=== PATIENT | male | born 1975 | race Caucasian/White ===

== ENCOUNTER 2016-05-30 14:32 | Emergency (ER) | payer SELFPAY ==
[2016-05-30 14:44] VITALS: BP 170/84
[2016-05-30] MEDS ORDERED: HYDROmorphone 0.5 MG/0.5 ML Syringe IVPUSH ONE (15:51)
[2016-05-30] MEDS ORDERED: Ondansetron 4 MG/2 ML SDV IVPUSH ONE (15:51)
--- NOTE | 2016-05-30 15:57 | EDM.PDOC ---
ED HPI GI/ABDOMINAL - General Chief Complaint: Abdominal Pain Stated Complaint: POSS. HERNIA Time Seen by Provider: 05/30/16 15:39 Source of Information: Reports: Patient History Limitations: Reports: No limitations - History of Present Illness INITIAL COMMENTS - FREE TEXT/NARRATIVE: Patient is a 40-year-old male who presents to the ED complaining of left lower quadrant abdominal pain. States while lifting a heavy object with a coworker he developed sudden onset of left inguinal discomfort that radiated into his testicles. Patient states he noticed a bulge to his left groin and was able to push it back in. States the pain is constant increased with ambulation and palpation. States he has a hard time getting comfortable. Currently the pain is rated a 10 out of 10. Denies any testicular pain but notes a pressure sensation. Has had no issues with bowel movements. Last bowel movement was earlier today described as normal formed and soft. No blood present. He's had no issues or urination. He is mildly nauseated with generalized body aches with also tactile fever and chills. Timing/Duration: Reports: Constant, Waxing/waning Location: LLQ Quality: Reports: ache Severity: severe Improves with: Reports: other (rest) Worsens with: Reports: palpation, other (moving) Context: Reports: lifting Associated Symptoms: Reports: fever/chills, loss of appetite, malaise, nausea/ vomiting. 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: Other (see below) (none stated) - Related Data Allergies/ADRs: Allergies Allergy/AdvReac Type Severity Reaction Status Date / Time No Known Allergies Allergy Verified 05/30/16 14:44 Home Meds: Home Meds Hydrocodone/Acetaminophen [[place] 5-325] 1 tab PO TID PRN #10 tablet 05/30/16 [Rx ] Past Medical History - Past Health History Medical/Surgical History: Denies Medical/Surgical History Gastrointestinal History: Reports: Hepatitis, Pancreatitis Psychiatric History: Reports: Addiction Social & Family History - Family History Family Medical History: Noncontributory - Tobacco Use Smoking Status *Q: Current Every Day Smoker Years of Tobacco use: 20 Packs/Tins Daily: 1 - Caffeine Use Caffeine Use: Reports: Coffee, Energy drinks - Alcohol Use Days Per Week of Alcohol Use: 7 Number of Drinks Per Day: 4 Total Drinks Per Week: 28 - Recreational Drug Use Recreational Drug Use: No Drug Use in Last 12 Months: No - Living Situation & Occupation Living situation: Reports: single Occupation: employed ED ROS GENERAL - Review of Systems Review Of Systems: See Below Constitutional: Reports: fever, chills, malaise, decreased appetite Respiratory: Reports: No Symptoms Cardiovascular: Reports: No symptoms GI/Abdominal: Reports: Abdominal pain, Decreased appetite, Nausea. Denies: Black stool, Bloody stool, Constipation, Diarrhea, Vomiting : Reports: no symptoms Musculoskeletal: Reports: no symptoms ED EXAM, GI/ABD - Physical Exam Exam: See Below Exam Limited By: No limitations General Appearance: alert, WD/WN, mild distress Ears: hearing grossly normal Nose: normal inspection Throat/Mouth: Normal voice, No airway compromise Neck: normal inspection Respiratory/Chest: no respiratory distress, lungs clear, normal breath sounds Cardiovascular: normal peripheral pulses, regular rate, rhythm GI/Abdominal: normal bowel sounds, soft, no organomegaly, no distention, tenderness (left inguinal region), guarding (Male) Exam: No hernia, Normal inspection, Circumcised, Cremasteric reflex. No: Scrotum tenderness (L), Scrotum tenderness (R), Testicular tenderness (L), Testicular tenderness (R) Rectal (Males) Exam: Deferred Back Exam: normal inspection. No: CVA tenderness (L), CVA tenderness (R) Neurological: alert, oriented, CN II-XII intact, normal cognition Psychiatric: normal affect, normal mood Skin Exam: Warm, Dry, Intact, Normal color Course - Vital Signs Last Recorded V/S: Last Vital Signs Temp 99.3 F 05/30/16 14:39 Pulse 99 05/30/16 14:39 Resp 18 05/30/16 14:39 BP 170/84 H 05/30/16 14:39 Pulse Ox 99 05/30/16 14:39 - Orders/Labs/Meds Orders: Active Orders 24 hr Category Date Time Status Peripheral IV Care [RC] . DIRECTED Care 05/30/16 15:51 Active Peripheral IV Insertion Adult [OM.PC] Stat Oth 05/30/16 15:51 Ordered Labs: Laboratory Tests 05/30/16 05/30/16 05/30/16 Range/Units 16:10 16:10 16:39 WBC 8.42 (4.23-9.07) K/mm3 RBC 5.81 (4.63-6.08) M/mm3 Hgb 18.1 H (13.7-17.5) gm/L Hct 51.8 H (40.1-51.0) % MCV 89.2 (79.0-92.2) fl MCH 31.2 (25.7-32.2) pg MCHC 34.9 (32.2-35.5) g/dl RDW Std Deviation 43.0 (35.1-43.9) fL Plt Count 260 (163-337) K/mm3 MPV 8.7 L (9.4-12.3) fl Neut % (Auto) 45.9 (34.0-67.9) % Lymph % (Auto) 40.5 (21.8-53.1) % Meade % (Auto) 7.2 (5.3-12.2) % Eos % (Auto) 4.9 (0.8-7.0) Baso % (Auto) 1.3 H (0.1-1.2) % Neut # (Auto) 3.86 (1.78-5.38) K/mm3 Lymph # (Auto) 3.41 (1.32-3.57) K/mm3 [place] # (Auto) 0.61 (0.30-0.82) K/mm3 Eos # (Auto) 0.41 (0.04-0.54) K/mm3 Baso # (Auto) 0.11 H (0.01-0.08) K/mm3 Sodium 139 (136-145) mEq/L Potassium 4.0 (3.5-5.1) mEq/L Chloride 103 (98-107) mEq/L Carbon Dioxide 26 (21-32) mEq/L Anion Gap 14.0 (5-15) BUN 16 (7-18) mg/dL Creatinine 0.8 (0.7-1.3) mg/dL Est Cr Clr Drug Dosing 125.47 mL/min Estimated GFR (MDRD) > 60 (>60) mL/min BUN/Creatinine Ratio 20.0 H (14-18) Glucose 85 (74-106) mg/dL Calcium 9.1 (8.5-10.1) mg/dL Total Bilirubin 0.4 (0.2-1.0) mg/dL AST 54 H (15-37) U/L ALT 122 H (16-63) U/L Alkaline Phosphatase 136 H (46-116) U/L C-Reactive Protein < 0.2 (<1.0) mg/dL Total Protein 7.2 (6.4-8.2) g/dl Albumin 4.0 (3.4-5.0) g/dl Globulin 3.2 gm/dL Albumin/Globulin Ratio 1.3 (1-2) Lipase 384 (73-393) U/L Urine Color Yellow (Yellow) Urine Appearance Clear (Clear) Urine pH 6.5 (5.0-8.0) Ur Specific [place] 1.025 (1.005-1.030) Urine Protein Negative (Negative) Urine Glucose (UA) Negative (Negative) Urine Ketones Negative (Negative) Urine Occult Blood Negative (Negative) Urine Nitrite Negative (Negative) Urine Bilirubin Negative (Negative) Urine Urobilinogen 0.2 (0.2-1.0) Ur Leukocyte Esterase Negative (Negative) Urine RBC 0-5 (0-5) /hpf Urine WBC 0-5 (0-5) /hpf Ur Epithelial Cells Not Reportable Ur Squamous Epith Cells 0-5 (0-5) /hpf Urine Bacteria Few (FEW) /hpf Urine Mucus Not seen (FEW) /hpf Meds: Medications Discontinued Medications Generic Name Dose Route Start Last Admin Trade Name Jimbo PRN Reason Stop Dose Admin Diatrizoate Meglum/Diatrizoate Sod 90 ml 05/30/16 17:02 05/30/16 17:38 Gastrografin 37% PO 05/30/16 17:03 90 ml ONETIME ONE Administration Hydromorphone HCl 0.5 mg 05/30/16 15:51 Dilaudid IVPUSH 05/30/16 15:52 ONETIME ONE Sodium Chloride 1,000 mls @ 125 mls/hr 05/30/16 16:00 05/30/16 16:19 Normal Saline IV 125 mls/hr ASDIRECTED RAMAN Administration Iopamidol 125 ml 05/30/16 17:02 05/30/16 17:38 Isovue-300 (61%) IVPUSH 05/30/16 17:03 125 ml ONETIME ONE Administration Ketorolac Tromethamine 30 mg 05/30/16 16:15 05/30/16 16:31 Toradol IVPUSH 05/30/16 16:16 30 mg ONETIME ONE Administration Ondansetron HCl 4 mg 05/30/16 15:51 05/30/16 16:19 Zofran IVPUSH 05/30/16 15:52 4 mg ONETIME ONE Administration Sodium Chloride 10 ml 05/30/16 15:51 05/30/16 17:38 Saline Flush FLUSH 10 ml ASDIRECTED PRN Administration Keep Vein Open - Re-Assessments/Exams Free Text/Narrative Re-Assessment/Exam: Ordered peripheral IV with normal saline 125 mL per hour, Dilaudid 0.5 mg IVP, and Zofran 4 mg IVP. Initial labs and studies include CBC, chem 14, CRP, lipase , UA with micro, and CT of the abdomen and pelvis with IV and oral contrast. 05/30/16 15:52 Patient refused Dilaudid since he has to drive. Toradol 30mg IV ordered. Labs revealed CBC was essentially normal. Chem 14 was also essentially normal with only mildly elevated LFTs. Lipase WNL. UA was negative. 05/30/16 18:38 CT of the abdomen revealed no abnormality is identified CT study of the abdomen and pelvis. Shared results of labs and also CT study with patient. He is ready to be discharged home. Discharge instructions as documented. Departure - Departure Time of Disposition: 19:17 Disposition: Home, Self-Care 01 Condition: good Clinical Impression: Abdominal pain Qualifiers: Abdominal location: left lower quadrant Qualified Code(s): R10.32 - Left lower quadrant pain Prescriptions: Hydrocodone/Acetaminophen [[place] 5-325] 1 tab PO TID PRN #10 tablet PRN Reason: Pain Instructions: Abdominal Pain, Adult, [id number], Pain Medicine Instructions, [id number] Referrals: PCP,None [Primary Care Provider] - Segun Arevalo [Physician] - Parish Silveira MD [Physician] - Forms: ED Department Discharge Additional Instructions: As discussed CT of the abdomen and pelvis did not reveal any acute abnormalities. Labs were essentially normal except for elevated liver enzymes. Will have you followup with Dr. Luevano for further workup. In addition with concerns for left inguinal hernia and left lower abdominal pain please followup with Dr. Silveira in the next week. Refrain from any heavy lifting. For pain take ibuprofen 600mg every 6 hours. For severe pain take norco 1 tab every [address] while taking the narcotic. Return to the E.D. for any new or worsening symptoms. - My Orders Last 24 Hours: My Active Orders 05/30/16 15:51 Peripheral IV Care [RC] . DIRECTED Peripheral IV Insertion Adult [OM.PC] Stat - Assessment/Plan Last 24 Hours: My Active Orders 05/30/16 15:51 Peripheral IV Care [RC] . DIRECTED Peripheral IV Insertion Adult [OM.PC] Stat
[2016-05-30] MEDS ORDERED: Sodium Chloride 0.9% 1,000 ML IV SCH (16:00)
[2016-05-30] MEDS ORDERED: Ketorolac 30 MG/ML SDV IVPUSH ONE (16:15)
[2016-05-30] MEDS: Sodium Chloride 0.9% 10 ML Syringe FLUSH PRN ×2 (16:40→17:38)
[2016-05-30] MEDS ORDERED: Diatrizoate Meglumine/Diatrizoate Sodium 37% 120 ML Bottle PO ONE (17:02)
[2016-05-30] MEDS ORDERED: Iopamidol 612 MG/ML 150 ML Bottle IVPUSH ONE (17:02)
--- NOTE | 2016-05-30 17:58 | CT ---
CT abdomen and pelvis Technique: Multiple axial sections were obtained from above the dome of the diaphragm inferiorly through the pubic symphysis. Intravenous and oral contrast was utilized. Delayed images were also obtained through the bladder. Findings: Liver shows no focal parenchymal abnormality. Adrenal glands show no nodule. Pancreas is normal. Spleen appears normal. Kidneys show symmetric contrast enhancement without hydronephrosis or mass. Gallbladder shows no calcified gallstones. Aorta shows no aneurysmal dilatation. No retroperitoneal adenopathy or mesenteric abnormalities are seen. Appendix is seen which appears normal in size. No pelvic mass or adenopathy is seen. No free fluid or inflammatory change is seen. No bowel dilatation is seen. Delayed images shows contrast within the distal ureters and within the bladder. Bone window settings were reviewed which appears within normal limits for the patient's age. Impression: 1. No abnormality is identified on CT study of the abdomen and pelvis. Diagnostic code #1
== END 2016-05-30 19:45 | disposition home or self-care (01) ==
LOC: JD.ED 14:32
DX: R10.32 Left lower quadrant pain (principal); F17.200 Nicotine dependence, unspecified, uncomplicated
CPT/HCPCS: 36415; 74177; 80053; 81001; 83690; 85025; 86140; 96361; 96374; 96375; 99284; J1885; J2405; J7040; J7050; Q9963; Q9967

== ENCOUNTER 2016-09-03 22:18 | Emergency (ER) | payer SELFPAY ==
[2016-09-03] MEDS ORDERED: Naloxone 2 MG/2 ML Syringe IVPUSH STA (23:37)
[2016-09-03] MEDS ORDERED: Sodium Chloride 0.9% 1,000 ML IV SCH (23:45)
[2016-09-03] MEDS ORDERED: Naloxone 2 MG/2 ML Syringe IVPUSH ONE (23:56)
[2016-09-04] MEDS ORDERED: Naloxone 2 MG/2 ML Syringe IVPUSH ONE ×2 (00:32→01:20)
[2016-09-04 00:37] LABS: ACETAMINOPHEN 0 ug/mL (10-30)
--- NOTE | 2016-09-04 00:49 | EDM.PDOCBH ---
ED HPI GENERAL MEDICAL PROBLEM - General Chief Complaint: Drug or Alcohol Abuse Stated Complaint: DETOX Time Seen by Provider: 09/03/16 22:57 Source of Information: Reports: Patient, Family (Brother, [id number]), RN Notes Reviewed History Limitations: Reports: Altered Mental Status - History of Present Illness INITIAL COMMENTS - FREE TEXT/NARRATIVE: The patient is brought to the ED by his brother and [id number]. The brother states that the patient is a heroin addict, and that he has not been reliably showing up to work for the past 1-2 months, and that he is running out of money. He states that family and friends of the patient, including the patient' s landlord and boss, held an intervention tonight, encouraging the patient to seek help, and after some time, the patient eventually said okay. The patient states that he injects 1-2 points (0.1 - 0.2 g) of heroin daily. His last dose was around 22:00 tonight - he injected 1.5 points (0.15 g). He states that he started using heroin when he was around 18 years old, sporadically initially, but daily for the past 9 months. He has never been to inpatient or outpatient drug rehabilitation, and he has never been hospitalized related to his heroin use. He states that he has never overdosed on heroin, and has never been given Narcan, in fact, he did not know what Narcan was. He has never investigated medication treatment for heroin abstinence, such as methadone or Suboxone. The patient states that he tried to stop heroin "cold turkey" about 3 weeks ago. He states that he abstained from heroin for about 3-4 days before developing symptoms of skin crawling, restlessness, and feeling hot and cold, after which he relapsed. The patient states that he will occasionally inject methamphetamine, but the last time he did that was about 2 months ago. The patient states, and the patient's brother corroborates, that the patient oftentimes drinks alcohol in excess when he is not shooting heroin, but that he uses it more conservatively when he is using heroin. The patient states that when he is using heroin, he typically has 2 drinks per night. He denies having any alcohol tonight. The patient was in inpatient rehabilitation at [facility] for about 2 weeks last year, for alcoholism. He states that he went to outpatient counseling for about 2 weeks, and has not gone back since. He was hospitalized for alcohol-related pancreatitis in 2009, but he has never suffered DTs, and has never required endotracheal intubation. The patient does not have a PCP. - Related Data Allergies Allergy/AdvReac Type Severity Reaction Status Date / Time No Known Allergies Allergy Verified 05/30/16 14:44 Past Medical History Gastrointestinal History: Reports: Pancreatitis Psychiatric History: Reports: Addiction - Past Surgical History HEENT Surgical History: Reports: Oral Surgery (Counce teeth extraction) Social & Family History - Family History Family Medical History: Noncontributory - Tobacco Use Smoking Status *Q: Current Every Day Smoker Years of Tobacco use: 26 Packs/Tins Daily: 2 - Caffeine Use Caffeine Use: Reports: None - Alcohol Use Alcohol Use History: Yes Days Per Week of Alcohol Use: 7 Number of Drinks Per Day: 4 Total Drinks Per Week: 28 Alcohol Use Frequency: Binges - Recreational Drug Use Recreational Drug Use: Yes Drug Use in Last 12 Months: Yes Recreational Drug Type: Reports: Heroin (daily), Methamphetamine (occasionally) - Living Situation & Occupation Living situation: Reports: , with Significant Other (Girlfriend) Occupation: Employed ([employer]) ED ROS GENERAL - Review of Systems Review Of Systems: See Below Constitutional: Reports: No Symptoms HEENT: Reports: No Symptoms Respiratory: Reports: No Symptoms Cardiovascular: Reports: No Symptoms Endocrine: Reports: No Symptoms GI/Abdominal: Reports: No Symptoms : Reports: No Symptoms Musculoskeletal: Reports: No Symptoms Skin: Reports: No Symptoms Neurological: Reports: No Symptoms Psychiatric: Reports: No Symptoms Hematologic/Lymphatic: Reports: No Symptoms Immunologic: Reports: No Symptoms ED EXAM, BEHAVIORAL HEALTH - Physical Exam Exam: See Below Exam Limited By: Intoxication General Appearance: WD/WN, No Apparent Distress, Lethargic (easily aroused with tactile stimulation) Eye Exam: Bilateral Eye: Normal Inspection Ears: Normal External Exam, Hearing Grossly Normal Nose: Normal Inspection, No Blood Throat/Mouth: Normal Inspection, Normal Lips, Normal Voice, No Airway Compromise Head: Atraumatic, Normocephalic Neck: Normal Inspection, Full Range of Motion Respiratory/Chest: No Respiratory Distress, Lungs Clear, Normal Breath Sounds, No Accessory Muscle Use Cardiovascular: Normal Peripheral Pulses, Regular Rate, Rhythm, No Gallop, No JVD, No Murmur, No Rub GI/Abdominal: Normal Bowel Sounds, Soft, Non-Tender, No Organomegaly, No Distention, No Abnormal Bruit, No Mass (Male) Exam: Deferred Rectal (Males) Exam: Deferred Back Exam: Normal Inspection, Full Range of Motion, NT Extremities: Normal Inspection, Normal Range of Motion, No Pedal Edema, Normal Capillary Refill, Other (Track jordan noted on the proximal left forearm and antecubetal fossa) Neurological: No Motor/Sensory Deficits, Inattentive Psychiatric: Normal Affect Skin Exam: Warm, Dry, Intact, Normal color, No rash EKG INTERPRETATION EKG Date: 09/03/16 Time: 23:40 Rhythm: NSR Rate (Beats/Min): 85 [place]: Normal P-Wave: Present QRS: Normal ST-T: Normal QT: Normal Comparison: NA - No Prior EKG COURSE, BEHAVIORAL HEALTH COMP - Course Vital Signs: Last Vital Signs Temp 36.6 C 09/03/16 22:32 Pulse 98 09/03/16 22:32 Resp 18 09/03/16 22:32 BP 121/91 H 09/03/16 22:32 Pulse Ox 88 L 09/03/16 22:32 Orders, Labs, Meds: Active Orders 24 hr Category Date Time Status EKG Documentation Completion [RC] STAT Care 09/03/16 23:34 Active Sodium Chloride 0.9% [Normal Saline] 1,000 ml Med 09/03/16 23:45 Active IV ASDIRECTED Medication Orders Sodium Chloride (Normal Saline) 1,000 mls @ 150 mls/hr IV ASDIRECTED RAMAN Last Admin: 09/03/16 23:49 Dose: 150 mls/hr Laboratory Tests 09/03/16 09/03/16 09/03/16 Range/Units 23:34 23:34 23:34 WBC 8.97 (4.23-9.07) K/mm3 RBC 4.73 (4.63-6.08) M/mm3 Hgb 15.0 (13.7-17.5) gm/L Hct 44.2 (40.1-51.0) % MCV 93.4 H (79.0-92.2) fl MCH 31.7 (25.7-32.2) pg MCHC 33.9 (32.2-35.5) g/dl RDW Std Deviation 42.2 (35.1-43.9) fL Plt Count 231 (163-337) K/mm3 MPV 8.9 L (9.4-12.3) fl Neutrophils % (Manual) 50 (40-60) % Band Neutrophils % 0 (0-10) % Lymphocytes % (Manual) 34 (20-40) % Atypical Lymphs % 0 % Monocytes % (Manual) 9 (2-10) % Eosinophils % (Manual) 7 (0.8-7.0) % Basophils % (Manual) 0 L (0.2-1.2) Platelet Estimate Adequate Plt Morphology Comment Normal RBC Morph Comment Normal Sodium 142 (136-145) mEq/L Potassium 3.5 (3.5-5.1) mEq/L Chloride 104 (98-107) mEq/L Carbon Dioxide 31 (21-32) mEq/L Anion Gap 10.5 (5-15) BUN 10 (7-18) mg/dL Creatinine 1.0 (0.7-1.3) mg/dL Est Cr Clr Drug Dosing 100.38 mL/min Estimated GFR (MDRD) > 60 (>60) mL/min BUN/Creatinine Ratio 10.0 L (14-18) Glucose 77 (74-106) mg/dL Calcium 8.5 (8.5-10.1) mg/dL Total Bilirubin 0.4 (0.2-1.0) mg/dL AST 32 (15-37) U/L ALT 49 (16-63) U/L Alkaline Phosphatase 76 (46-116) U/L Total Protein 7.0 (6.4-8.2) g/dl Albumin 3.6 (3.4-5.0) g/dl Globulin 3.4 gm/dL Albumin/Globulin Ratio 1.1 (1-2) Salicylates 4.2 (2.8-20) mg/dL Urine Opiates Screen (NEGATIVE) Ur Buprenorphine Scrn (NEGATIVE) Ur Oxycodone Screen (NEGATIVE) Urine Methadone Screen (NEGATIVE) Ur Propoxyphene Screen (NEGATIVE) Acetaminophen 0 L (10-30) ug/mL Ur Barbiturates Screen (NEGATIVE) Ur Tricyclics Screen (NEGATIVE) Ur Phencyclidine Scrn (NEGATIVE) Ur Amphetamine Screen (NEGATIVE) U Methamphetamines Scrn (NEGATIVE) U Benzodiazepines Scrn (NEGATIVE) U Cocaine Metab Screen (NEGATIVE) U Marijuana (THC) Screen (NEGATIVE) Ethyl Alcohol 0.00 (0.00) gm% 09/04/16 Range/Units 01:39 WBC (4.23-9.07) K/mm3 RBC (4.63-6.08) M/mm3 Hgb (13.7-17.5) gm/L Hct (40.1-51.0) % MCV (79.0-92.2) fl MCH (25.7-32.2) pg MCHC (32.2-35.5) g/dl RDW Std Deviation (35.1-43.9) fL Plt Count (163-337) K/mm3 MPV (9.4-12.3) fl Neutrophils % (Manual) (40-60) % Band Neutrophils % (0-10) % Lymphocytes % (Manual) (20-40) % Atypical Lymphs % % Monocytes % (Manual) (2-10) % Eosinophils % (Manual) (0.8-7.0) % Basophils % (Manual) (0.2-1.2) Platelet Estimate Plt Morphology Comment RBC Morph Comment Sodium (136-145) mEq/L Potassium (3.5-5.1) mEq/L Chloride (98-107) mEq/L Carbon Dioxide (21-32) mEq/L Anion Gap (5-15) BUN (7-18) mg/dL Creatinine (0.7-1.3) mg/dL Est Cr Clr Drug Dosing mL/min Estimated GFR (MDRD) (>60) mL/min BUN/Creatinine Ratio (14-18) Glucose (74-106) mg/dL Calcium (8.5-10.1) mg/dL Total Bilirubin (0.2-1.0) mg/dL AST (15-37) U/L ALT (16-63) U/L Alkaline Phosphatase (46-116) U/L Total Protein (6.4-8.2) g/dl Albumin (3.4-5.0) g/dl Globulin gm/dL Albumin/Globulin Ratio (1-2) Salicylates (2.8-20) mg/dL Urine Opiates Screen Presumptive positive H (NEGATIVE) Ur Buprenorphine Scrn Negative (NEGATIVE) Ur Oxycodone Screen Negative (NEGATIVE) Urine Methadone Screen Negative (NEGATIVE) Ur Propoxyphene Screen Negative (NEGATIVE) Acetaminophen (10-30) ug/mL Ur Barbiturates Screen Negative (NEGATIVE) Ur Tricyclics Screen Negative (NEGATIVE) Ur Phencyclidine Scrn Negative (NEGATIVE) Ur Amphetamine Screen Negative (NEGATIVE) U Methamphetamines Scrn Presumptive positive H (NEGATIVE) U Benzodiazepines Scrn Presumptive positive H (NEGATIVE) U Cocaine Metab Screen Negative (NEGATIVE) U Marijuana (THC) Screen Negative (NEGATIVE) Ethyl Alcohol (0.00) gm% Medications Generic Name Dose Route Start Last Admin Trade Name Freq PRN Reason Stop Dose Admin Sodium Chloride 1,000 mls @ 150 mls/hr 09/03/16 23:45 09/03/16 23:49 Normal Saline IV 150 mls/hr ASDIRECTED RAMAN Administration Discontinued Medications Generic Name Dose Route Start Last Admin Trade Name Freq PRN Reason Stop Dose Admin Naloxone HCl 0.1 mg 09/03/16 23:37 09/03/16 23:50 Narcan IVPUSH 09/03/16 23:38 0.1 mg ONETIME STA Administration Naloxone HCl 0.1 mg 09/03/16 23:56 09/04/16 00:01 Narcan IVPUSH 09/03/16 23:57 0.1 mg ONETIME ONE Administration Naloxone HCl 0.1 mg 09/04/16 00:32 09/04/16 00:36 Narcan IVPUSH 09/04/16 00:33 0.1 mg ONETIME ONE Administration Naloxone HCl 0.1 mg 09/04/16 01:20 09/04/16 01:22 Narcan IVPUSH 09/04/16 01:21 0.1 mg ONETIME ONE Administration Medical Clearance: 09/04/16 01:42 The patient was brought into the ED by the patient's brother and [id number], with the hope that he would receive medical detox here, then be admitted to an inpatient rehabilitation facility. Unfortunately, such "interventions" do not work unless the patient is motivated to rid himself or herself of the drug or alcohol, and even that sentiment is meaningless unless patient is sober when they make that decision. In this case, the patient is significantly under the influence of heroin, to the point that he falls asleep and hypoventilates, leading to hypoxemia. He is easily aroused with minimal physical stimuli, however, it is not practical to have someone sitting next to him, arousing him every minute or so when his oxygen saturation declines. I have therefore elected to treat with Narcan, however, it is not my intention to put him into full-blown withdrawal. I have therefore been giving him very small doses, 0.1 mg IV, whenever his oxygen saturation drops. He has responded very well, either by waking up, or remaining asleep, but in either case, with an immediate rise in his oxygen saturation. Within the next few hours, the heroin he took will wear off, and Narcan will no longer be necessary. Once he has sobered up, I will refer him to [facility]. 09/04/16 05:45 The patient has been sleeping quietly. He has not required any Narcan since 01: 20, over 4 hours ago. He is currently easy to wake and lucid. I will have him call his brother to pick him up. I will give him the number for [facility], and encourage him to follow-up today. Departure - Departure Time of Disposition: 05:47 Disposition: Home, Self-Care 01 Condition: Good Clinical Impression: Heroin addiction, Polysubstance abuse - Discharge Information Additional Instructions: You were brought to the emergency room by your family over concern about your heroin use. You were given 4 doses of Narcan to prevent you from under-breathing. We STRONGLY recommend that you follow-up at [facility] today, located at: [facility] [address] [place] If any other problems, please do not hesitate to return to the ER. - My Orders Last 24 Hours: My Active Orders 09/03/16 23:34 EKG Documentation Completion [RC] STAT 09/03/16 23:45 Sodium Chloride 0.9% [Normal Saline] 1,000 ml IV ASDIRECTED - Assessment/Plan Last 24 Hours: My Active Orders 09/03/16 23:34 EKG Documentation Completion [RC] STAT 09/03/16 23:45 Sodium Chloride 0.9% [Normal Saline] 1,000 ml IV ASDIRECTED
[2016-09-04 06:09] VITALS: BP 101/72
== END 2016-09-04 06:07 | disposition home or self-care (01) ==
LOC: JD.ED 22:18
DX: F11.20 Opioid dependence, uncomplicated (principal); F19.10 Other psychoactive substance abuse, uncomplicated; F17.210 Nicotine dependence, cigarettes, uncomplicated; Z98.890 Other specified postprocedural states
CPT/HCPCS: 36415; 80053; 80306; 85025; 93005; 96361; 96374; 96376; 99284; G0480; J2310; J7040

== ENCOUNTER 2016-09-07 11:26 | Emergency (ER) | payer SELFPAY ==
[2016-09-07] MEDS ORDERED: Sodium Chloride 0.9% 10 ML Syringe FLUSH PRN (12:24)
[2016-09-07] MEDS ORDERED: Sodium Chloride 0.9% 2,000 ML IV ONE (12:24)
[2016-09-07] MEDS ORDERED: LORazepam 2 MG/ML MDV IVPUSH ONE (12:24)
[2016-09-07] MEDS ORDERED: Ondansetron 4 MG/2 ML SDV IVPUSH ONE (12:25)
[2016-09-07] MEDS ORDERED: ceFAZolin 1 GM in Premix Bag 1 BAG IV ONE (12:27)
--- NOTE | 2016-09-07 12:30 | EDM.PDOCBH ---
ED HPI GENERAL MEDICAL PROBLEM - General Chief Complaint: Behavioral/Psych Stated Complaint: DRUG AND ALCHOL WITHDRAWAL Time Seen by Provider: 09/07/16 12:14 Source of Information: Reports: Patient History Limitations: Reports: No Limitations - History of Present Illness INITIAL COMMENTS - FREE TEXT/NARRATIVE: Patient is a 40-year-old male presents to the ED going through heroin withdrawal. Patient states he last used heroin approximately 72 hours ago and has since then been experiencing hot and cold chills, nausea/vomiting, and tremors. Patient states he's gone through similar episodes 3 additional times with no hospitalization required. States he injects heroin twice a day for the past year. He has used marijuana and methamphetamines in the past. Denies recent alcohol use. He has undergone alcohol treatment inpatient in the past. Denies any treatment for recreational drug use. He recently lost his job but may retain it if he undergoes 30 day treatment. Patient has been excepted to the [facility] Crisis Bed but has to be medically cleared. Patient denies CP, SOB, N/V , fever/chills, or any additional complaints. Headache Pain Score (Numeric/FACES): 5 - Related Data Allergies Allergy/AdvReac Type Severity Reaction Status Date / Time No Known Allergies Allergy Verified 09/08/16 11:29 Home Meds: Home Meds . [No Known Home Meds] 09/07/16 [History] Past Medical History - Past Health History Medical/Surgical History: Denies Medical/Surgical History Gastrointestinal History: Reports: Pancreatitis Psychiatric History: Reports: Addiction, Anxiety - Past Surgical History HEENT Surgical History: Reports: Oral Surgery Social & Family History - Family History Family Medical History: Noncontributory - Tobacco Use Smoking Status *Q: Current Every Day Smoker Years of Tobacco use: 30 Packs/Tins Daily: 1 Used Tobacco, but Quit: No Second Hand Smoke Exposure: No - Caffeine Use Caffeine Use: Reports: Energy Drinks - Alcohol Use Days Per Week of Alcohol Use: 7 Number of Drinks Per Day: 4 Total Drinks Per Week: 28 - Recreational Drug Use Recreational Drug Use: Yes Drug Use in Last 12 Months: Yes Recreational Drug Type: Reports: Heroin Other Recreational Drug Type: last used 72 hours ago Recreational Drug Use Frequency: Daily - Living Situation & Occupation Living situation: Reports: , with Significant Other (Girlfriend) 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 ED EXAM, BEHAVIORAL HEALTH - Physical Exam Exam: See Below Exam Limited By: No Limitations General Appearance: Alert, WD/WN, Anxious Eye Exam: Bilateral Eye: EOMI, PERRL Ears: Hearing Grossly Normal Nose: Normal Inspection Throat/Mouth: Normal Voice, No Airway Compromise Head: Atraumatic, Normocephalic Neck: Normal Inspection, Supple, Non-Tender, Full Range of Motion. No: Lymphadenopathy (L), Lymphadenopathy (R) Respiratory/Chest: No Respiratory Distress, Lungs Clear, Normal Breath Sounds, No Accessory Muscle Use, Chest Non-Tender Cardiovascular: Normal Peripheral Pulses, Regular Rate, Rhythm GI/Abdominal: Normal Bowel Sounds, Soft, Non-Tender, No Organomegaly, No Distention Back Exam: Normal Inspection Extremities: Other (Multiple track jordan to the right/left upper extremity. Mild redness noted to the right/left antecubital space. Increased warmth noted. No purulent drainage present. No history of MRSA per patient.) Neurological: Alert, Normal Mood/Affect, CN II-XII Intact, Normal Cognition, Normal Gait, No Motor/Sensory Deficits, Oriented x 3 Psychiatric: Alert, Normal Affect, Normal Cognition, Normal Mood, Oriented. No : Homicidal Thoughts, Suicidal Plan, Suicidal Thoughts COURSE, BEHAVIORAL HEALTH COMP - Course Vital Signs: Last Vital Signs Temp 97.9 F 09/07/16 11:38 Pulse 62 09/07/16 14:27 Resp 14 09/07/16 14:27 BP 116/69 09/07/16 14:27 Pulse Ox 94 L 09/07/16 14:27 Orders, Labs, Meds: Laboratory Tests 09/07/16 09/07/16 09/07/16 Range/Units 12:52 12:52 12:52 WBC 8.14 (4.23-9.07) K/mm3 RBC 4.58 L (4.63-6.08) M/mm3 Hgb 14.6 (13.7-17.5) gm/L Hct 42.3 (40.1-51.0) % MCV 92.4 H (79.0-92.2) fl MCH 31.9 (25.7-32.2) pg MCHC 34.5 (32.2-35.5) g/dl RDW Std Deviation 40.9 (35.1-43.9) fL Plt Count 275 (163-337) K/mm3 MPV 8.6 L (9.4-12.3) fl Neut % (Auto) 46.6 (34.0-67.9) % Lymph % (Auto) 35.6 (21.8-53.1) % [place] % (Auto) 11.4 (5.3-12.2) % Eos % (Auto) 5.3 (0.8-7.0) Baso % (Auto) 0.9 (0.1-1.2) % Neut # (Auto) 3.79 (1.78-5.38) K/mm3 Lymph # (Auto) 2.90 (1.32-3.57) K/mm3 [place] # (Auto) 0.93 H (0.30-0.82) K/mm3 Eos # (Auto) 0.43 (0.04-0.54) K/mm3 Baso # (Auto) 0.07 (0.01-0.08) K/mm3 PT 10.5 (8.0-13.0) SECONDS INR 0.97 Sodium 143 (136-145) mEq/L Potassium 3.8 (3.5-5.1) mEq/L Chloride 106 (98-107) mEq/L Carbon Dioxide 30 (21-32) mEq/L Anion Gap 10.8 (5-15) BUN 12 (7-18) mg/dL Creatinine 0.8 (0.7-1.3) mg/dL Est Cr Clr Drug Dosing 121.52 mL/min Estimated GFR (MDRD) > 60 (>60) mL/min BUN/Creatinine Ratio 15.0 (14-18) Glucose 77 (74-106) mg/dL Calcium 8.8 (8.5-10.1) mg/dL Total Bilirubin 0.6 (0.2-1.0) mg/dL AST 32 (15-37) U/L ALT 49 (16-63) U/L Alkaline Phosphatase 82 (46-116) U/L C-Reactive Protein 2.7 H* (<1.0) mg/dL Total Protein 7.0 (6.4-8.2) g/dl Albumin 3.5 (3.4-5.0) g/dl Globulin 3.5 gm/dL Albumin/Globulin Ratio 1.0 (1-2) TSH 3rd Generation 0.812 (0.358-3.74) uIU/mL Urine Color (Yellow) Urine Appearance (Clear) Urine pH (5.0-8.0) Ur Specific [place] (1.005-1.030) Urine Protein (Negative) Urine Glucose (UA) (Negative) Urine Ketones (Negative) Urine Occult Blood (Negative) Urine Nitrite (Negative) Urine Bilirubin (Negative) Urine Urobilinogen (0.2-1.0) Ur Leukocyte Esterase (Negative) Urine RBC (0-5) /hpf Urine WBC (0-5) /hpf Ur Epithelial Cells (0-5) /hpf Urine Bacteria (FEW) /hpf Urine Mucus (FEW) /hpf Urine Opiates Screen (NEGATIVE) Ur Buprenorphine Scrn (NEGATIVE) Ur Oxycodone Screen (NEGATIVE) Urine Methadone Screen (NEGATIVE) Ur Propoxyphene Screen (NEGATIVE) Ur Barbiturates Screen (NEGATIVE) Ur Tricyclics Screen (NEGATIVE) Ur Phencyclidine Scrn (NEGATIVE) Ur Amphetamine Screen (NEGATIVE) U Methamphetamines Scrn (NEGATIVE) U Benzodiazepines Scrn (NEGATIVE) U Cocaine Metab Screen (NEGATIVE) U Marijuana (THC) Screen (NEGATIVE) Ethyl Alcohol 0.00 (0.00) gm% 09/07/16 09/07/16 Range/Units 14:54 14:54 WBC (4.23-9.07) K/mm3 RBC (4.63-6.08) M/mm3 Hgb (13.7-17.5) gm/L Hct (40.1-51.0) % MCV (79.0-92.2) fl MCH (25.7-32.2) pg MCHC (32.2-35.5) g/dl RDW Std Deviation (35.1-43.9) fL Plt Count (163-337) K/mm3 MPV (9.4-12.3) fl Neut % (Auto) (34.0-67.9) % Lymph % (Auto) (21.8-53.1) % [place] % (Auto) (5.3-12.2) % Eos % (Auto) (0.8-7.0) Baso % (Auto) (0.1-1.2) % Neut # (Auto) (1.78-5.38) K/mm3 Lymph # (Auto) (1.32-3.57) K/mm3 [place] # (Auto) (0.30-0.82) K/mm3 Eos # (Auto) (0.04-0.54) K/mm3 Baso # (Auto) (0.01-0.08) K/mm3 PT (8.0-13.0) SECONDS INR Sodium (136-145) mEq/L Potassium (3.5-5.1) mEq/L Chloride (98-107) mEq/L Carbon Dioxide (21-32) mEq/L Anion Gap (5-15) BUN (7-18) mg/dL Creatinine (0.7-1.3) mg/dL Est Cr Clr Drug Dosing mL/min Estimated GFR (MDRD) (>60) mL/min BUN/Creatinine Ratio (14-18) Glucose (74-106) mg/dL Calcium (8.5-10.1) mg/dL Total Bilirubin (0.2-1.0) mg/dL AST (15-37) U/L ALT (16-63) U/L Alkaline Phosphatase (46-116) U/L C-Reactive Protein (<1.0) mg/dL Total Protein (6.4-8.2) g/dl Albumin (3.4-5.0) g/dl Globulin gm/dL Albumin/Globulin Ratio (1-2) TSH 3rd Generation (0.358-3.74) uIU/mL Urine Color Yellow (Yellow) Urine Appearance Clear (Clear) Urine pH 5.5 (5.0-8.0) Ur Specific [place] > or = 1.030 (1.005-1.030) Urine Protein Trace H (Negative) Urine Glucose (UA) Negative (Negative) Urine Ketones Trace H (Negative) Urine Occult Blood Negative (Negative) Urine Nitrite Negative (Negative) Urine Bilirubin 2+ H (Negative) Urine Urobilinogen 0.2 (0.2-1.0) Ur Leukocyte Esterase Negative (Negative) Urine RBC 0-5 (0-5) /hpf Urine WBC 0-5 (0-5) /hpf Ur Epithelial Cells 0-5 (0-5) /hpf Urine Bacteria Few (FEW) /hpf Urine Mucus Moderate H (FEW) /hpf Urine Opiates Screen Presumptive positive H (NEGATIVE) Ur Buprenorphine Scrn Negative (NEGATIVE) Ur Oxycodone Screen Negative (NEGATIVE) Urine Methadone Screen Negative (NEGATIVE) Ur Propoxyphene Screen Negative (NEGATIVE) Ur Barbiturates Screen Negative (NEGATIVE) Ur Tricyclics Screen Negative (NEGATIVE) Ur Phencyclidine Scrn Negative (NEGATIVE) Ur Amphetamine Screen Negative (NEGATIVE) U Methamphetamines Scrn Negative (NEGATIVE) U Benzodiazepines Scrn Presumptive positive H (NEGATIVE) U Cocaine Metab Screen Negative (NEGATIVE) U Marijuana (THC) Screen Negative (NEGATIVE) Ethyl Alcohol (0.00) gm% Medications Discontinued Medications Generic Name Dose Route Start Last Admin Trade Name Freq PRN Reason Stop Dose Admin Sodium Chloride 2,000 mls @ 999 mls/hr 09/07/16 12:24 09/07/16 13:13 Normal Saline IV 09/07/16 14:24 999 mls/hr ONETIME ONE Administration Cefazolin Sodium/Dextrose 1 gm 50 mls @ 100 mls/hr 09/07/16 12:27 09/07/16 13 :11 / Premix IV 09/07/16 12:56 100 mls/hr ONETIME ONE Administration Lorazepam 2 mg 09/07/16 12:24 09/07/16 13:05 Ativan IVPUSH 09/07/16 12:25 2 mg ONETIME ONE Administration Ondansetron HCl 4 mg 09/07/16 12:25 09/07/16 13:02 Zofran IVPUSH 09/07/16 12:26 4 mg ONETIME ONE Administration Sodium Chloride 10 ml 09/07/16 12:24 09/07/16 13:03 Saline Flush FLUSH 10 ml ASDIRECTED PRN Administration Keep Vein Open Re-Assessment/Re-Exam: Will order a peripheral IV with normal saline, Zofran 4 mg IVP, and Ativan 1 mg IVP. Initial labs and studies include CBC, chem 14, CRP, blood cultures 2, urine drug tox, serum EtOH, PTT/INR, TSH, UA with micro, and EKG. Patient has cellulitis to the antecubital spaces bilaterally. Ordered Ancef 1 g IV. Labs reviewed. Awaiting UA results. Patient more comfortable after receiving ativan. UA results were not back. Patient became agitated and very anxious and wanted to leave. Patient eloped from the ED. Departure - Departure Time of Disposition: 15:45 Disposition: Eloped 07 Condition: Good Clinical Impression: Heroin addiction, Heroin withdrawal Cellulitis Qualifiers: Site of cellulitis: extremity Site of cellulitis of extremity: upper extremity Laterality: unspecified laterality Qualified Code(s): L03.119 - Cellulitis of unspecified part of limb - Discharge Information Referrals: PCP,None [Primary Care Provider] - Forms: ED Department Discharge
--- NOTE | 2016-09-07 13:34 | CR ---
Chest: Portable view of the chest was obtained. Comparison: No previous chest x-ray. Heart has a slight left ventricular configuration and is minimally enlarged. Tortuous thoracic aorta is seen. Lungs are clear with no acute infiltrates. Slight degenerative spurring is noted within the mid thoracic spine. Impression: 1. Incidental findings as noted above. Nothing acute is seen. Diagnostic code #2
[2016-09-07 14:27] VITALS: BP 116/69
== END 2016-09-07 15:35 | disposition left against medical advice (07) ==
LOC: JD.ED 11:26
DX: F11.23 Opioid dependence with withdrawal (principal); L03.114 Cellulitis of left upper limb; L03.113 Cellulitis of right upper limb; F17.210 Nicotine dependence, cigarettes, uncomplicated
CPT/HCPCS: 36415; 71010; 80053; 80306; 81001; 84443; 85025; 85610; 86140; 87040; 93005; 96361; 96365; 96375; 99285; G0480; J0690; J2060; J2405; J7040; J7050; 99284

== ENCOUNTER 2016-09-08 11:26 | Inpatient (IN) | payer SELFPAY ==
[2016-09-08] MEDS ORDERED: Sodium Chloride 0.9% 1,000 ML IV STA (11:54)
[2016-09-08] MEDS ORDERED: cloNIDine 0.1 MG Tab PO ONE (11:57)
[2016-09-08] MEDS: Sodium Chloride 0.9% 10 ML Syringe FLUSH PRN (12:16)
--- NOTE | 2016-09-08 12:54 | EDM.PDOC ---
ED HPI GENERAL MEDICAL PROBLEM - General Chief Complaint: Fever Stated Complaint: [facility] Time Seen by Provider: 09/08/16 11:41 Source of Information: Reports: Patient, EMS History Limitations: Reports: Intoxication - History of Present Illness INITIAL COMMENTS - FREE TEXT/NARRATIVE: The patient presents by ambulance for heroin withdrawal. He is a known user and he was seen yesterday for withdrawals. He was without heroin for 72 hours as of yesterday and he had nausea, vomiting and agitation. He was seen here and labs were done which looked good. He was going to go to the [facility] but he left before they could get him there. He used heroin again last night. He injected the heroin. He has some redness and edema to the right antecubital area. He has no chest pain or shortness of breath. He has fever, chills but no cough. He did get ancef yesterday. He denies using meth or other street drugs. He denies drinking alcohol. He has nausea and vomiting and he was given zofran by EMS. Onset: Gradual Duration: Day(s): (Yesterday) Severity: Moderate Improves with: Reports: None Worsens with: Reports: None Associated Symptoms: Reports: Fever/Chills, Nausea/Vomiting. Denies: Cough, cough w sputum, Shortness of Breath Treatments BASIN OPERATOR: Reports: IV/IO, Other (see below) Other Treatments BASIN OPERATOR: zofran 4 mg IV - Related Data Allergies Allergy/AdvReac Type Severity Reaction Status Date / Time No Known Allergies Allergy Verified 09/08/16 11:29 Home Meds: Home Meds . [No Known Home Meds] 09/07/16 [History] Past Medical History - Past Health History Medical/Surgical History: Denies Medical/Surgical History Gastrointestinal History: Reports: Pancreatitis Psychiatric History: Reports: Addiction, Anxiety - Past Surgical History HEENT Surgical History: Reports: Oral Surgery Social & Family History - Family History Family Medical History: Noncontributory - Tobacco Use Smoking Status *Q: Current Every Day Smoker Years of Tobacco use: 30 Packs/Tins Daily: 1 Used Tobacco, but Quit: No Second Hand Smoke Exposure: No - Caffeine Use Caffeine Use: Reports: Energy Drinks - Alcohol Use Days Per Week of Alcohol Use: 7 Number of Drinks Per Day: 4 Total Drinks Per Week: 28 - Recreational Drug Use Recreational Drug Use: Yes Drug Use in Last 12 Months: Yes Recreational Drug Type: Reports: Heroin Other Recreational Drug Type: last used 72 hours ago Recreational Drug Use Frequency: Daily - Living Situation & Occupation Living situation: Reports: , with Significant Other (Girlfriend) Occupation: Employed ([employer]) ED ROS GENERAL - Review of Systems Review Of Systems: See Below Constitutional: Reports: Fever, Chills HEENT: Reports: No Symptoms Respiratory: Reports: No Symptoms Cardiovascular: Reports: No Symptoms Endocrine: Reports: No Symptoms GI/Abdominal: Reports: Nausea, Vomiting. Denies: Abdominal Pain : Reports: No Symptoms Musculoskeletal: Reports: Other (Right AC redness and pain) ED EXAM, SEPSIS - Physical Exam Exam: See Below Exam Limited By: Other (He is somnolent but he will awake when talked to and answer some questions) General Appearance: Other (Somnolent) Eye Exam: Bilateral Eye: PERRL Ears: Normal External Exam Nose: Normal Inspection Throat/Mouth: Normal Inspection Head: Atraumatic, Normocephalic Neck: Normal Inspection Respiratory/Chest: No Respiratory Distress, Lungs Clear, Normal Breath Sounds Cardiovascular: Regular Rate, Rhythm, No Edema, No Murmur GI/Abdominal Exam: Soft, Non-Tender, No Organomegaly, No Mass Back: Normal Inspection Extremities: Other (Right AC has erythema and edema. Good sensation pulses distally.) Neurological: Oriented, No Motor/Sensory Deficits, Other (somnolent but he will wake up and answer questions) Course - Vital Signs Last Recorded V/S: Last Vital Signs Temp 101.0 F H 09/08/16 11:29 Pulse 133 H 09/08/16 11:29 Resp 24 H 09/08/16 11:29 BP 148/81 H 09/08/16 12:14 Pulse Ox 99 09/08/16 11:29 - Orders/Labs/Meds Orders: Active Orders 24 hr Category Date Time Status Oxygen Therapy [RC] ASDIRECTED Care 09/08/16 16:30 Active Peripheral IV Care [RC] . DIRECTED Care 09/08/16 11:57 Active Levofloxacin/Dextrose 5%-Water [Levaquin in D5W 750 MG/ Med 09/08/16 16:26 Active 150 ML] 750 mg Premix Bag 1 bag IV ONETIME Sodium Chloride 0.9% [Normal Saline] 100 ml Med 09/08/16 15:30 Active IV ASDIRECTED Sodium Chloride 0.9% [Saline Flush] Med 09/08/16 11:54 Active 10 ml FLUSH ASDIRECTED PRN Peripheral IV Insertion Adult [OM.PC] Stat Oth 09/08/16 11:54 Ordered Medication Orders Sodium Chloride (Normal Saline) 100 mls @ 60 mls/hr IV ASDIRECTED RAMAN Last Admin: 09/08/16 15:48 Dose: 60 mls/hr Levofloxacin/Dextrose 750 mg/ (Premix) 150 mls @ 100 mls/hr IV ONETIME ONE Stop: 09/08/16 17:55 Last Admin: 09/08/16 16:35 Dose: 100 mls/hr Sodium Chloride (Saline Flush) 10 ml FLUSH ASDIRECTED PRN PRN Reason: Keep Vein Open Last Admin: 09/08/16 12:16 Dose: 10 ml Labs: Laboratory Tests 09/08/16 09/08/16 09/08/16 Range/Units 12:10 12:10 12:10 WBC 8.31 (4.23-9.07) K/mm3 RBC 4.73 (4.63-6.08) M/mm3 Hgb 15.3 (13.7-17.5) gm/L Hct 43.1 (40.1-51.0) % MCV 91.1 (79.0-92.2) fl MCH 32.3 H (25.7-32.2) pg MCHC 35.5 (32.2-35.5) g/dl RDW Std Deviation 40.5 (35.1-43.9) fL Plt Count 240 (163-337) K/mm3 MPV 8.4 L (9.4-12.3) fl Neut % (Auto) 96.2 H (34.0-67.9) % Lymph % (Auto) 3.0 L (21.8-53.1) % [place] % (Auto) 0.5 L (5.3-12.2) % Eos % (Auto) 0.1 L (0.8-7.0) Baso % (Auto) 0.2 (0.1-1.2) % Neut # (Auto) 7.99 H (1.78-5.38) K/mm3 Lymph # (Auto) 0.25 L (1.32-3.57) K/mm3 [place] # (Auto) 0.04 L (0.30-0.82) K/mm3 Eos # (Auto) 0.01 L (0.04-0.54) K/mm3 Baso # (Auto) 0.02 (0.01-0.08) K/mm3 Manual Slide Review Abnormal smear Puncture Site ABG pH (7.35-7.45) ABG pCO2 (35.0-45.0) mmHg ABG pO2 (80.0-100.0) mmHg ABG HCO3 (22.0-26.0) meq/L ABG O2 Saturation (96.0-97.0) % ABG Base Excess (-2-2.0) A-a Gradient mmHg O2 Delivery Device FiO2 (21.00-100.00) % Sodium 142 (136-145) mEq/L Potassium 3.2 L (3.5-5.1) mEq/L Chloride 106 (98-107) mEq/L Carbon Dioxide 27 (21-32) mEq/L Anion Gap 12.2 (5-15) BUN 11 (7-18) mg/dL Creatinine 1.0 (0.7-1.3) mg/dL Est Cr Clr Drug Dosing 100.38 mL/min Estimated GFR (MDRD) > 60 (>60) mL/min BUN/Creatinine Ratio 11.0 L (14-18) Glucose 116 H (74-106) mg/dL Calcium 8.3 L (8.5-10.1) mg/dL Total Bilirubin 1.0 (0.2-1.0) mg/dL AST 174 H (15-37) U/L ALT 89 H (16-63) U/L Alkaline Phosphatase 174 H (46-116) U/L Troponin I (0.00-0.056) ng/mL B-Natriuretic Peptide 76 (0-100) pg/mL Total Protein 6.2 L (6.4-8.2) g/dl Albumin 3.0 L (3.4-5.0) g/dl Globulin 3.2 gm/dL Albumin/Globulin Ratio 0.9 L (1-2) Urine Opiates Screen (NEGATIVE) Ur Buprenorphine Scrn (NEGATIVE) Ur Oxycodone Screen (NEGATIVE) Urine Methadone Screen (NEGATIVE) Ur Propoxyphene Screen (NEGATIVE) Ur Barbiturates Screen (NEGATIVE) Ur Tricyclics Screen (NEGATIVE) Ur Phencyclidine Scrn (NEGATIVE) Ur Amphetamine Screen (NEGATIVE) U Methamphetamines Scrn (NEGATIVE) U Benzodiazepines Scrn (NEGATIVE) U Cocaine Metab Screen (NEGATIVE) U Marijuana (THC) Screen (NEGATIVE) Ethyl Alcohol 0.00 (0.00) gm% 09/08/16 09/08/16 09/08/16 Range/Units 12:10 12:26 16:41 WBC (4.23-9.07) K/mm3 RBC (4.63-6.08) M/mm3 Hgb (13.7-17.5) gm/L Hct (40.1-51.0) % MCV (79.0-92.2) fl MCH (25.7-32.2) pg MCHC (32.2-35.5) g/dl RDW Std Deviation (35.1-43.9) fL Plt Count (163-337) K/mm3 MPV (9.4-12.3) fl Neut % (Auto) (34.0-67.9) % Lymph % (Auto) (21.8-53.1) % [place] % (Auto) (5.3-12.2) % Eos % (Auto) (0.8-7.0) Baso % (Auto) (0.1-1.2) % Neut # (Auto) (1.78-5.38) K/mm3 Lymph # (Auto) (1.32-3.57) K/mm3 [place] # (Auto) (0.30-0.82) K/mm3 Eos # (Auto) (0.04-0.54) K/mm3 Baso # (Auto) (0.01-0.08) K/mm3 Manual Slide Review Puncture Site Rt radial ABG pH 7.46 H (7.35-7.45) ABG pCO2 35.3 (35.0-45.0) mmHg ABG pO2 68.0 L (80.0-100.0) mmHg ABG HCO3 25.0 (22.0-26.0) meq/L ABG O2 Saturation 93.9 L (96.0-97.0) % ABG Base Excess 2.0 (-2-2.0) A-a Gradient 22 mmHg O2 Delivery Device Room air FiO2 21.00 (21.00-100.00) % Sodium (136-145) mEq/L Potassium (3.5-5.1) mEq/L Chloride (98-107) mEq/L Carbon Dioxide (21-32) mEq/L Anion Gap (5-15) BUN (7-18) mg/dL Creatinine (0.7-1.3) mg/dL Est Cr Clr Drug Dosing mL/min Estimated GFR (MDRD) (>60) mL/min BUN/Creatinine Ratio (14-18) Glucose (74-106) mg/dL Calcium (8.5-10.1) mg/dL Total Bilirubin (0.2-1.0) mg/dL AST (15-37) U/L ALT (16-63) U/L Alkaline Phosphatase (46-116) U/L Troponin I < 0.017 (0.00-0.056) ng/mL B-Natriuretic Peptide (0-100) pg/mL Total Protein (6.4-8.2) g/dl Albumin (3.4-5.0) g/dl Globulin gm/dL Albumin/Globulin Ratio (1-2) Urine Opiates Screen Presumptive positive H (NEGATIVE) Ur Buprenorphine Scrn Negative (NEGATIVE) Ur Oxycodone Screen Negative (NEGATIVE) Urine Methadone Screen Negative (NEGATIVE) Ur Propoxyphene Screen Negative (NEGATIVE) Ur Barbiturates Screen Negative (NEGATIVE) Ur Tricyclics Screen Negative (NEGATIVE) Ur Phencyclidine Scrn Negative (NEGATIVE) Ur Amphetamine Screen Negative (NEGATIVE) U Methamphetamines Scrn Negative (NEGATIVE) U Benzodiazepines Scrn Presumptive positive H (NEGATIVE) U Cocaine Metab Screen Negative (NEGATIVE) U Marijuana (THC) Screen Negative (NEGATIVE) Ethyl Alcohol (0.00) gm% Meds: Medications Generic Name Dose Route Start Last Admin Trade Name Freq PRN Reason Stop Dose Admin Sodium Chloride 100 mls @ 60 mls/hr 09/08/16 15:30 09/08/16 15:48 Normal Saline IV 60 mls/hr ASDIRECTED RAMAN Administration Levofloxacin/Dextrose 750 mg/ 150 mls @ 100 mls/hr 09/08/16 16:26 09/08/16 16 :35 Premix IV 09/08/16 17:55 100 mls/hr ONETIME ONE Administration Sodium Chloride 10 ml 09/08/16 11:54 09/08/16 12:16 Saline Flush FLUSH 10 ml ASDIRECTED PRN Administration Keep Vein Open Discontinued Medications Generic Name Dose Route Start Last Admin Trade Name Jimbo PRN Reason Stop Dose Admin Clonidine HCl 0.1 mg 09/08/16 11:57 09/08/16 12:14 Catapres PO 09/08/16 11:58 0.1 mg ONETIME ONE Administration Sodium Chloride 1,000 mls @ 1,000 mls/hr 09/08/16 11:54 09/08/16 12:14 Normal Saline IV 09/08/16 12:53 1,000 mls/hr .BOLUS STA Administration Iopamidol 100 ml 09/08/16 15:27 09/08/16 15:48 Isovue-370 (76%) IVPUSH 09/08/16 15:28 100 ml ONETIME ONE Administration Sodium Chloride 10 ml 09/08/16 15:27 09/08/16 15:48 Saline Flush FLUSH 09/08/16 15:28 10 ml ONETIME ONE Administration - Re-Assessments/Exams Free Text/Narrative Re-Assessment/Exam: 09/08/16 17:00 I ordered an IV NS 1L bolus, labs, and urine drug screen. His CBC looks good. His CMP shows a slightly low K of 3.2. His glucose is a little elevated at 116. His AST is elevated at 174. His ALT was elevated at 89. His alk phos was elevated at 174. He continued to be tachypnic and tachycardic. I ordered a CXR and it looked like an infiltrate on the right. Dr Dunbar read it and he felt it may be CHF. I ordered a troponin that was negative and a BNP that was negative. I also ordered a CT of his chest that showed no findings of PE. Mild increased density within both lung bases. Findings could represent atelectasis but difficult to exclude pneumonia especially on the right side. He got blood cultures yesterday. I ordered levaquin 750mg IV. His ABG shows a pH of 7.46. pCO2 at 35.3 and low pO2 of 68. I put him on 2L of oxygen. I called Dr Franco and she accepted the patient. Departure - Departure Time of Disposition: 17:05 Disposition: Admitted As Inpatient 66 Condition: Fair Clinical Impression: Heroin addiction Pneumonia Qualifiers: Pneumonia type: due to unspecified organism Laterality: bilateral Lung location : lower lobe of lung Qualified Code(s): J18.9 - Pneumonia, unspecified organism Cellulitis Qualifiers: Site of cellulitis: extremity Site of cellulitis of extremity: upper extremity Laterality: right Qualified Code(s): L03.113 - Cellulitis of right upper limb - Discharge Information Forms: ED Department Discharge - My Orders Last 24 Hours: My Active Orders 09/08/16 11:54 Sodium Chloride 0.9% [Saline Flush] 10 ml FLUSH ASDIRECTED PRN Peripheral IV Insertion Adult [OM.PC] Stat 09/08/16 11:57 Peripheral IV Care [RC] . DIRECTED 09/08/16 15:30 Sodium Chloride 0.9% [Normal Saline] 100 ml IV ASDIRECTED 09/08/16 16:26 Levofloxacin/Dextrose 5%-Water [Levaquin in D5W 750 MG/150 ML] 750 mg Premix Bag 1 bag IV ONETIME 09/08/16 16:30 Oxygen Therapy [RC] ASDIRECTED - Assessment/Plan Last 24 Hours: My Active Orders 09/08/16 11:54 Sodium Chloride 0.9% [Saline Flush] 10 ml FLUSH ASDIRECTED PRN Peripheral IV Insertion Adult [OM.PC] Stat 09/08/16 11:57 Peripheral IV Care [RC] . DIRECTED 09/08/16 15:30 Sodium Chloride 0.9% [Normal Saline] 100 ml IV ASDIRECTED 09/08/16 16:26 Levofloxacin/Dextrose 5%-Water [Levaquin in D5W 750 MG/150 ML] 750 mg Premix Bag 1 bag IV ONETIME 09/08/16 16:30 Oxygen Therapy [RC] ASDIRECTED
--- NOTE | 2016-09-08 15:18 | CR ---
Chest: Portable view of the chest was obtained. Comparison: Previous chest x-ray of 09/07/16. Diffuse increased lung markings are noted as an interval change from prior exam. Findings most likely due to pulmonary vascular congestion. Heart is slightly enlarged on current exam. Bony structures are grossly intact. Impression: 1. Findings suspicious for CHF as an interval change from prior chest x-ray. Diagnostic code #3
[2016-09-08] MEDS ORDERED: Iopamidol 755 Mg/ML 100 ML Bottle IVPUSH ONE (15:27)
[2016-09-08] MEDS ORDERED: Sodium Chloride 0.9% 10 ML Syringe FLUSH ONE (15:27)
[2016-09-08] MEDS ORDERED: Sodium Chloride 0.9% 100 ML IV SCH (15:30)
--- NOTE | 2016-09-08 16:24 | CT ---
CT chest Technique: Multiple axial sections were obtained from above the lung apices inferiorly through the lung bases. Intravenous contrast was utilized. Study has been performed as a pulmonary angiogram protocol. Findings: Pulmonary arteries are moderately well-opacified. No filling defects are seen to indicate pulmonary embolism. Mild increased density is seen within both lung bases. Findings could represent atelectasis but difficult to exclude pneumonia especially on the right side. Incidental calcified lymph nodes are seen within the mediastinum compatible with previous granulomatous exposure. No axillary adenopathy is seen. No pericardial thickening is seen. Small portion of the visualized upper abdominal structures are within normal limits. Bone window settings shows mild degenerative spurring within the spine. Impression: 1. No findings of pulmonary embolism. 2. Mild increased density within both lung bases. Findings could represent atelectasis but difficult to exclude pneumonia especially on the right side. 3. Other incidental findings. Diagnostic code #3
[2016-09-08] MEDS ORDERED: Levofloxacin/Dextrose 5%-Water 750 MG in Premix Bag 1 BAG IV ONE (16:26)
--- NOTE | 2016-09-08 18:07 | PCM.HP ---
H&P History of Present Illness - General Date of Service: 09/08/16 Source of Information: Provider History Limitations: Reports: No Limitations - History of Present Illness Initial Comments - Free Text/Narative: 40 year old male with longstanding substance abuse history. Has reported to the ED three times including the day of admission. 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 Reportedly he was to have gone to the [facility]. He now presents with a fever and chills, temperature in the ED was greater than 101.0 F. CXR shows density in bilateral lung bases. Onset of Symptoms: Reports: Unknown/Unsure Duration of Symptoms: Reports: Day(s):, Getting Worse Location: Reports: Generalized Quality: Reports: Same as Previous Episode Improves with: Reports: Medication Worsens with: Reports: None Associated Symptoms: Reports: Fever/Chills, Malaise, Nausea/Vomiting, Weakness - Related Data Allergies/Adverse Reactions: Allergies Allergy/AdvReac Type Severity Reaction Status Date / Time No Known Allergies Allergy Verified 09/08/16 11:29 Home Medications: Home Meds . [No Known Home Meds] 09/07/16 [History] Past Medical History - Past Health History Medical/Surgical History: Denies Medical/Surgical History Gastrointestinal History: Reports: Pancreatitis Psychiatric History: Reports: Addiction, Anxiety - Past Surgical History HEENT Surgical History: Reports: Oral Surgery Social & Family History - Family History Family Medical History: Noncontributory - Tobacco Use Smoking Status *Q: Current Every Day Smoker Years of Tobacco use: 20 Packs/Tins Daily: 1.5 Used Tobacco, but Quit: No Second Hand Smoke Exposure: No - Caffeine Use Caffeine Use: Reports: Energy Drinks Other Caffeine Use: unkown - Alcohol Use Days Per Week of Alcohol Use: 7 Number of Drinks Per Day: 4 Total Drinks Per Week: 28 Date of Last Drink: 09/07/16 Time of Last Drink: 20:00 - Recreational Drug Use Recreational Drug Use: Yes Drug Use in Last 12 Months: Yes Recreational Drug Type: Reports: Benzodiazepines, Heroin Other Recreational Drug Type: last used 72 hours ago Recreational Drug Use Frequency: Daily - Living Situation & Occupation Living situation: Reports: , with Significant Other (Girlfriend) 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) H&P Review of Systems - Review of Systems: Review Of Systems: See Below General: Reports: Fever, Chills, Malaise, Weakness, Decreased Appetite HEENT: Reports: No Symptoms Pulmonary: Reports: Shortness of Breath Cardiovascular: Reports: No Symptoms Gastrointestinal: Reports: No Symptoms, Nausea Genitourinary: Reports: No Symptoms Musculoskeletal: Reports: No Symptoms Skin: Reports: No Symptoms Psychiatric: Reports: No Symptoms Neurological: Reports: No Symptoms Exam - Exam Exam: See Below - Vital Signs Vital Signs: Last Vital Signs Temp 38.3 C H 09/08/16 11:29 Pulse 100 09/08/16 17:51 Resp 36 H 09/08/16 17:51 BP 98/63 09/08/16 17:51 Pulse Ox 94 L 09/08/16 17:51 Weight: 80.2 kg - Exam Quality Assessment: Supplemental Oxygen, DVT Prophylaxis General: Lethargic HEENT: Conjunctiva Clear, Mucosa Moist & [place], Nares Patent, Normal Nasal Septum , Pupils Equal, Pupils Reactive, TMs Clear Neck: Supple, Trachea Midline Lungs: Normal Respiratory Effort, Decreased Breath Sounds, Rhonchi Cardiovascular: Regular Rate, Tachycardia GI/Abdominal Exam: Normal Bowel Sounds, Soft, Non-Tender, No Organomegaly, No Distention (Male) Exam: Deferred Rectal (Males) Exam: Deferred Back Exam: Normal Inspection Extremities: Normal Inspection, No Pedal Edema Skin: Warm Neurological: Cranial Nerves Intact Neuro Extensive - Mental Status: Other (sedated) Neuro Extensive - Motor, Sensory, Reflexes: CN II-XII Intact Psychiatric: Alert, Anxious, Depressed - Patient Data Result Diagrams: 09/08/16 12:10 09/08/16 12:10 *Q Meaningful Use (ADM) - VTE *Q VTE Criteria *Q: - Stroke *Q Stroke Criteria *Q: - AMI *Q AMI Criteria *Q: - Problem List (1) Heroin addiction SNOMED Code(s): 601510467, 16834573, 583852780 ICD Code: F11.20 - OPIOID DEPENDENCE, UNCOMPLICATED Status: Acute Current Visit: Yes (2) Pneumonia SNOMED Code(s): 980464691 ICD Code: J18.9 - PNEUMONIA, UNSPECIFIED ORGANISM Status: Acute Current Visit: Yes Qualifiers: Pneumonia type: due to unspecified organism Laterality: bilateral Lung location: lower lobe of lung Qualified Code(s): J18.9 - Pneumonia, unspecified organism (3) Alcohol withdrawal syndrome SNOMED Code(s): 338743900 ICD Code: F10.239 - ALCOHOL DEPENDENCE WITH WITHDRAWAL, UNSPECIFIED Status : Acute Current Visit: No Qualifiers: Complication of substance-induced condition: uncomplicated Qualified Code(s ): F10.230 - Alcohol dependence with withdrawal, uncomplicated Problem List Initiated/Reviewed/Updated: Yes Orders Last 24hrs: Medication Orders Sodium Chloride (Normal Saline) 100 mls @ 60 mls/hr IV ASDIRECTED RAMAN Last Admin: 09/08/16 15:48 Dose: 60 mls/hr Sodium Chloride (Saline Flush) 10 ml FLUSH ASDIRECTED PRN PRN Reason: Keep Vein Open Last Admin: 09/08/16 12:16 Dose: 10 ml Assessment/Plan Comment:: Impression: Acute heorin use ETOH withdrawal Bilateral PNA/Hypoxia Hepatitis status, unknown Electrolytes imbalance Elevated transaminase Chronic: Anxiety Depression Tobacco Plan: CIWA IVF Supportive care, withdrawal ATBs-pna Nebs ICU admission SW/PT/OT Court order for hold. DVT/GI prophylaxis
[2016-09-08] MEDS ORDERED: Metoprolol Tartrate 5 MG/5 ML SDV IVPUSH PRN (18:21)
[2016-09-08] MEDS ORDERED: Ondansetron 4 MG/2 ML SDV IVPUSH PRN (18:22)
[2016-09-08] MEDS ORDERED: Magnesium Sulfate/Water 2 GM in Premix Bag 1 BAG IV ONE (18:23)
[2016-09-08] MEDS ORDERED: Enoxaparin 40 MG/0.4 ML Syringe SUBCUT ONE (18:25)
[2016-09-08] MEDS ORDERED: Piperacillin/Tazobactam 4.5 GM in Sodium Chloride 0.9% 100 ML IV ONE (19:00)
[2016-09-08] MEDS: Sodium Chloride 0.45% with KCl 1,000 ML IV SCH (19:25)
[2016-09-08] MEDS: cloNIDine 0.1 MG Tab PO SCH (20:04)
[2016-09-08] MEDS: Albuterol/Ipratropium 3.0-0.5 MG/3 ML Neb Soln NEB SCH (21:03)
[2016-09-09] MEDS: Piperacillin/Tazobactam 4.5 GM in Sodium Chloride 0.9% 100 ML IV SCH ×3 (02:03→19:53)
[2016-09-09] MEDS: Sodium Chloride 0.45% with KCl 1,000 ML IV SCH ×4 (02:03→23:19)
[2016-09-09] MEDS: Albuterol/Ipratropium 3.0-0.5 MG/3 ML Neb Soln NEB SCH ×4 (05:41→20:13)
[2016-09-09] MEDS: cloNIDine 0.1 MG Tab PO SCH ×3 (05:46→20:44)
--- NOTE | 2016-09-09 14:39 | PCM.PN ---
- General Info Date of Service: 09/09/16 Functional Status: Reports: Urinating - Review of Systems General: Reports: No Symptoms HEENT: Reports: No Symptoms Pulmonary: Reports: No Symptoms Cardiovascular: Reports: No Symptoms Gastrointestinal: Reports: No Symptoms Genitourinary: Reports: No Symptoms Musculoskeletal: Reports: No Symptoms Skin: Reports: No Symptoms Neurological: Reports: No Symptoms Psychiatric: Reports: Depression, Anxiety - Patient Data Vitals - Most Recent: Last Vital Signs Temp 36.5 C 09/09/16 12:00 Pulse 73 09/09/16 04:00 Resp 19 09/09/16 12:00 BP 118/80 09/09/16 12:00 Pulse Ox 99 09/09/16 12:00 Weight - Most Recent: 79.469 kg I&O - Last 24 Hours: Intake & Output 09/08/16 09/09/16 09/09/16 22:59 06:59 14:59 Intake Total 140 1290 Balance 140 1290 Lab Results Last 24 Hours: Laboratory Results - last 24 hr 09/09/16 09/09/16 Range/Units 06:15 06:15 WBC 23.86 H (4.23-9.07) K/mm3 RBC 4.54 L (4.63-6.08) M/mm3 Hgb 14.5 (13.7-17.5) gm/L Hct 41.8 (40.1-51.0) % MCV 92.1 (79.0-92.2) fl MCH 31.9 (25.7-32.2) pg MCHC 34.7 (32.2-35.5) g/dl RDW Std Deviation 42.2 (35.1-43.9) fL Plt Count 239 (163-337) K/mm3 MPV 8.8 L (9.4-12.3) fl Neut % (Auto) 85.5 H (34.0-67.9) % Lymph % (Auto) 7.3 L (21.8-53.1) % Rhea % (Auto) 6.2 (5.3-12.2) % Eos % (Auto) 0.5 L (0.8-7.0) Baso % (Auto) 0.2 (0.1-1.2) % Neut # (Auto) 20.38 H (1.78-5.38) K/mm3 Lymph # (Auto) 1.75 (1.32-3.57) K/mm3 Rhea # (Auto) 1.49 H (0.30-0.82) K/mm3 Eos # (Auto) 0.12 (0.04-0.54) K/mm3 Baso # (Auto) 0.05 (0.01-0.08) K/mm3 Manual Slide Review Abnormal smear Sodium 142 (136-145) mEq/L Potassium 4.1 (3.5-5.1) mEq/L Chloride 108 H (98-107) mEq/L Carbon Dioxide 25 (21-32) mEq/L Anion Gap 13.1 (5-15) BUN 12 (7-18) mg/dL Creatinine 0.9 (0.7-1.3) mg/dL Est Cr Clr Drug Dosing 111.53 mL/min Estimated GFR (MDRD) > 60 (>60) mL/min BUN/Creatinine Ratio 13.3 L (14-18) Glucose 104 (74-106) mg/dL Calcium 8.0 L (8.5-10.1) mg/dL Magnesium 1.9 (1.8-2.4) mg/dl C-Reactive Protein 12.1 H* (<1.0) mg/dL Mycoplasma pneumon IgM Negative (NEGATIVE) Med Orders - Current: Current Medications Albuterol/Ipratropium (Duoneb 3.0-0.5 Mg/3 Ml) 3 ml NEB QIDRT [facility] Last Admin: 09/09/16 09:11 Dose: 3 ml Chlordiazepoxide HCl (Librium) 25 mg PO TID PRN PRN Reason: Anxiety Clonidine HCl (Catapres) 0.1 mg PO Q8H [facility] Last Admin: 09/09/16 05:46 Dose: 0.1 mg Levofloxacin/Dextrose 750 mg/ (Premix) 150 mls @ 100 mls/hr IV Q24H [facility]1983 Piperacillin Sod/Tazobactam (Sod 4.5 gm/ Sodium Chloride) 100 mls @ 25 mls/hr IV Q8H [facility] Last Admin: 09/09/16 02:03 Dose: 25 mls/hr Potassium Chloride/Sodium Chloride (1/2 Ns With 20 Meq Kcl) 1,000 mls @ 150 mls /hr IV ASDIRECTED [facility]1983 Last Admin: 09/09/16 09:04 Dose: 150 mls/hr Metoprolol Tartrate (Lopressor) 5 mg IVPUSH Q4H PRN PRN Reason: Other Ondansetron HCl (Zofran) 4 mg IVPUSH Q8H PRN PRN Reason: Nausea/Vomiting Sodium Chloride (Saline Flush) 10 ml FLUSH ASDIRECTED PRN PRN Reason: Keep Vein Open Last Admin: 09/08/16 12:16 Dose: 10 ml Discontinued Medications Clonidine HCl (Catapres) 0.1 mg PO ONETIME ONE Stop: 09/08/16 11:58 Last Admin: 09/08/16 12:14 Dose: 0.1 mg Enoxaparin Sodium (Lovenox) 40 mg SUBCUT DAILY ONE Stop: 09/08/16 18:26 Last Admin: 09/08/16 20:04 Dose: 40 mg Sodium Chloride (Normal Saline) 1,000 mls @ 1,000 mls/hr IV .BOLUS STA Stop: 09/08/16 12:53 Last Admin: 09/08/16 12:14 Dose: 1,000 mls/hr Sodium Chloride (Normal Saline) 100 mls @ 150 mls/hr IV ASDIRECTED [facility] Last Admin: 09/08/16 15:48 Dose: 60 mls/hr Levofloxacin/Dextrose 750 mg/ (Premix) 150 mls @ 100 mls/hr IV ONETIME ONE Stop: 09/08/16 17:55 Last Admin: 09/08/16 16:35 Dose: 100 mls/hr Magnesium Sulfate 2 gm/ Premix 50 mls @ 25 mls/hr IV ONETIME ONE Stop: 09/08/16 20:22 Last Admin: 09/08/16 20:03 Dose: 25 mls/hr Piperacillin Sod/Tazobactam (Sod 4.5 gm/ Sodium Chloride) 100 mls @ 200 mls/hr IV ONETIME ONE Stop: 09/08/16 19:29 Last Admin: 09/08/16 19:25 Dose: 200 mls/hr Iopamidol (Isovue-370 (76%)) 100 ml IVPUSH ONETIME ONE Stop: 09/08/16 15:28 Last Admin: 09/08/16 15:48 Dose: 100 ml Sodium Chloride (Saline Flush) 10 ml FLUSH ONETIME ONE Stop: 09/08/16 15:28 Last Admin: 09/08/16 15:48 Dose: 10 ml - Exam Quality Assessment: Supplemental Oxygen, DVT Prophylaxis General: Alert, Oriented, Cooperative, No Acute Distress HEENT: Pupils Equal, Pupils Reactive, EOMI Neck: Supple, Trachea Midline Lungs: Normal Respiratory Effort, Decreased Breath Sounds, Rhonchi Cardiovascular: Regular Rate, Regular Rhythm GI/Abdominal Exam: Normal Bowel Sounds, Soft, Non-Tender, No Organomegaly, No Distention (Male) Exam: Deferred Back Exam: Normal Inspection Extremities: Normal Inspection Skin: Warm Neurological: No New Focal Deficit Psy/Mental Status: Alert, Anxious - Problem List & Annotations (1) Heroin addiction SNOMED Code(s): 348512731, 80961035, 080042837 Code(s): F11.20 - OPIOID DEPENDENCE, UNCOMPLICATED Status: Acute Current Visit: Yes (2) Pneumonia SNOMED Code(s): 088215384 Code(s): J18.9 - PNEUMONIA, UNSPECIFIED ORGANISM Status: Acute Current Visit: Yes Qualifiers: Pneumonia type: due to unspecified organism Laterality: bilateral Lung location: lower lobe of lung Qualified Code(s): J18.9 - Pneumonia, unspecified organism (3) Alcohol withdrawal syndrome SNOMED Code(s): 248823493 Code(s): F10.239 - ALCOHOL DEPENDENCE WITH WITHDRAWAL, UNSPECIFIED Status: Acute Current Visit: No Qualifiers: Complication of substance-induced condition: uncomplicated Qualified Code(s ): F10.230 - Alcohol dependence with withdrawal, uncomplicated - Problem List Review Problem List Initiated/Reviewed/Updated: Yes - My Orders Last 24 Hours: My Active Orders 09/08/16 18:10 Bedrest Bathroom Privileges [RC] CONTINUOUS HOB [Head of Bed Elevation] [RC] CONTINUOUS 09/08/16 18:11 Seizure Precautions [OM.PC] Routine Code Status [Resuscitation Status] Routine 09/08/16 18:12 Consult to Physician [CONS] Routine 09/08/16 18:13 Notify Provider Consults [RC] .PRN Consult for Substance Abuse [CONS] Routine 09/08/16 18:14 CIWAA Assessment [RC] Q1HR 09/08/16 18:21 Metoprolol Tartrate [Lopressor] 5 mg IVPUSH Q4H PRN 09/08/16 18:22 Ondansetron [Zofran] 4 mg IVPUSH Q8H PRN 09/08/16 18:25 Antiembolic Devices [RC] 10,22 RT Aerosol Therapy [RC] CONTINUOUS KATERINA Hose [Antiembolic Hose] [OM.PC] Routine 09/08/16 18:26 Isolation [COMM] Routine 09/08/16 18:28 Consult to Furnace Attendant [CONS] Routine 09/08/16 18:30 Sodium Chloride 0.45% with KCl [1/2 NS with 20 mEq KCl] 1,000 ml IV ASDIRECTED 09/08/16 18:50 RESPIRATORY PANEL BY PCR [MREF] Routine 09/08/16 20:09 chlordiazePOXIDE [Librium] 25 mg PO TID PRN 09/08/16 21:00 Albuterol/Ipratropium [DuoNeb 3.0-0.5 MG/3 ML] 3 ml NEB QIDRT cloNIDine [Catapres] 0.1 mg PO Q8H 09/09/16 03:00 Piperacillin/Tazobactam [Zosyn] 4.5 gm Sodium Chloride 0.9% [Normal Saline] 100 ml IV Q8H 09/09/16 06:15 HEPATITIS PANEL, ACUTE [REF] Routine 09/09/16 09:00 GRAM STAIN [RM] Routine 09/09/16 09:31 Patient Status [ADT] Routine 09/09/16 22:00 Levofloxacin/Dextrose 5%-Water [Levaquin in D5W 750 MG/150 ML] 750 mg Premix Bag 1 bag IV Q24H 09/09/16 Lunch Clear Liquid Diet [DIET] 09/10/16 05:00 BASIC METABOLIC PANEL,BMP [CHEM] DAILY CBC WITH AUTO DIFF [HEME] DAILY CRP [C-REACTIVE PROTEIN] [CHEM] DAILY MAGNESIUM [CHEM] DAILY 09/10/16 09:00 CXR [Chest 2V] [CR] Routine 09/11/16 05:00 BASIC METABOLIC PANEL,BMP [CHEM] DAILY CBC WITH AUTO DIFF [HEME] DAILY CRP [C-REACTIVE PROTEIN] [CHEM] DAILY MAGNESIUM [CHEM] DAILY 09/12/16 05:00 BASIC METABOLIC PANEL,BMP [CHEM] DAILY CBC WITH AUTO DIFF [HEME] DAILY CRP [C-REACTIVE PROTEIN] [CHEM] DAILY MAGNESIUM [CHEM] DAILY - Plan Plan:: Impression: Acute heroin use ETOH withdrawal Bilateral PNA/Hypoxia Hepatitis status, unknown Electrolytes imbalance Elevated transaminase Chronic: Anxiety Depression Tobacco Plan: CIWA IVF Supportive care, withdrawal ATBs-pna Nebs ICU admission SW/PT/OT Court order for hold. DVT/GI prophylaxis
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
[2016-09-09] MEDS: chlordiazePOXIDE 25 MG Cap PO PRN (20:44)
[2016-09-09] MEDS: Levofloxacin/Dextrose 5%-Water 750 MG in Premix Bag 1 BAG IV SCH (22:27)
[2016-09-09] MEDS ORDERED: Temazepam 15 MG Cap PO PRN (22:33)
[2016-09-09] MEDS ORDERED: traZODone 50 MG Tab PO PRN (22:34)
[2016-09-10] MEDS: Piperacillin/Tazobactam 4.5 GM in Sodium Chloride 0.9% 100 ML IV SCH ×3 (03:00→20:02)
[2016-09-10] MEDS: Albuterol/Ipratropium 3.0-0.5 MG/3 ML Neb Soln NEB SCH ×2 (05:21→10:19)
[2016-09-10] MEDS: cloNIDine 0.1 MG Tab PO SCH ×3 (05:41→21:15)
[2016-09-10] MEDS: Sodium Chloride 0.45% with KCl 1,000 ML IV SCH (05:45)
[2016-09-10] MEDS: chlordiazePOXIDE 25 MG Cap PO PRN (05:52)
--- NOTE | 2016-09-10 10:40 | CR ---
Chest: Two views of the chest were obtained. Comparison: Previous chest x-ray of 09/08/16. Previous increased density within both lung bases appears to have resolved. Lungs appear clear. Heart size and mediastinum are normal. Slight degenerative spurring is seen within the spine. Impression: 1. Nothing acute is seen on current chest x-ray. Previous findings have resolved. Diagnostic code #1
[2016-09-10] MEDS ORDERED: Albuterol/Ipratropium 3.0-0.5 MG/3 ML Neb Soln NEB PRN ×2 (14:49→14:54)
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
[2016-09-10] MEDS ORDERED: LORazepam 2 MG/ML MDV IVPUSH PRN (16:52)
--- NOTE | 2016-09-10 17:29 | PCM.PN ---
- General Info Date of Service: 09/10/16 Functional Status: Reports: Tolerating Diet, Ambulating - Review of Systems General: Reports: Weakness HEENT: Reports: No Symptoms Pulmonary: Reports: No Symptoms Cardiovascular: Reports: No Symptoms Gastrointestinal: Reports: No Symptoms Genitourinary: Reports: No Symptoms Musculoskeletal: Reports: No Symptoms Skin: Reports: No Symptoms Neurological: Reports: No Symptoms Psychiatric: Reports: No Symptoms - Patient Data Vitals - Most Recent: Last Vital Signs Temp 36.9 C 09/10/16 16:00 Pulse 95 09/09/16 16:00 Resp 19 09/10/16 16:00 BP 143/96 H 09/10/16 16:00 Pulse Ox 100 09/10/16 16:00 Weight - Most Recent: 77.337 kg I&O - Last 24 Hours: Intake & Output 09/10/16 09/10/16 09/10/16 06:59 14:59 22:59 Intake Total 2561 1485 2500 Output Total 1650 3300 Balance 911 -1815 2500 Lab Results Last 24 Hours: Laboratory Results - last 24 hr 09/10/16 09/10/16 09/10/16 Range/Units 05:55 05:55 05:55 WBC 16.63 H (4.23-9.07) K/mm3 RBC 4.64 (4.63-6.08) M/mm3 Hgb 14.2 (13.7-17.5) gm/L Hct 42.3 (40.1-51.0) % MCV 91.2 (79.0-92.2) fl MCH 30.6 (25.7-32.2) pg MCHC 33.6 (32.2-35.5) g/dl RDW Std Deviation 41.4 (35.1-43.9) fL Plt Count 247 (163-337) K/mm3 MPV 8.8 L (9.4-12.3) fl Neut % (Auto) 77.8 H (34.0-67.9) % Lymph % (Auto) 13.5 L (21.8-53.1) % Todd % (Auto) 6.3 (5.3-12.2) % Eos % (Auto) 0.9 (0.8-7.0) Baso % (Auto) 0.2 (0.1-1.2) % Neut # (Auto) 12.95 H (1.78-5.38) K/mm3 Lymph # (Auto) 2.25 (1.32-3.57) K/mm3 Todd # (Auto) 1.04 H (0.30-0.82) K/mm3 Eos # (Auto) 0.15 (0.04-0.54) K/mm3 Baso # (Auto) 0.03 (0.01-0.08) K/mm3 Manual Slide Review Abnormal smear Sodium 142 (136-145) mEq/L Potassium 3.7 (3.5-5.1) mEq/L Chloride 109 H (98-107) mEq/L Carbon Dioxide 20 L (21-32) mEq/L Anion Gap 16.7 H (5-15) BUN 6 L (7-18) mg/dL Creatinine 0.8 (0.7-1.3) mg/dL Est Cr Clr Drug Dosing 125.47 mL/min Estimated GFR (MDRD) > 60 (>60) mL/min BUN/Creatinine Ratio 7.5 L (14-18) Glucose 115 H (74-106) mg/dL Calcium 8.5 (8.5-10.1) mg/dL Magnesium 1.7 L (1.8-2.4) mg/dl C-Reactive Protein 4.3 H* (<1.0) mg/dL HIV-1 Ab Rapid Screen Negative (NEGATIVE) Jason Results Last 24 Hours: Microbiology 09/08/16 18:50 Respiratory Virus Panel (PCR) (JASON) - Final Nasopharyngeal Swab Med Orders - Current: Current Medications Albuterol/Ipratropium (Duoneb 3.0-0.5 Mg/3 Ml) 3 ml NEB QID PRN PRN Reason: Shortness of Breath Chlordiazepoxide HCl (Librium) 25 mg PO TID PRN PRN Reason: Anxiety Last Admin: 09/10/16 05:52 Dose: 25 mg Clonidine HCl (Catapres) 0.1 mg PO Q8H RAMAN Last Admin: 09/10/16 13:23 Dose: 0.1 mg Levofloxacin/Dextrose 750 mg/ (Premix) 150 mls @ 100 mls/hr IV Q24H RAMAN Last Admin: 09/09/16 22:27 Dose: 100 mls/hr Piperacillin Sod/Tazobactam (Sod 4.5 gm/ Sodium Chloride) 100 mls @ 25 mls/hr IV Q8H RAMAN Last Admin: 09/10/16 10:31 Dose: 25 mls/hr Potassium Chloride/Sodium Chloride (1/2 Ns With 20 Meq Kcl) 1,000 mls @ 150 mls /hr IV ASDIRECTED [facility] Last Admin: 09/10/16 05:45 Dose: 150 mls/hr Lorazepam (Ativan) 2 mg IVPUSH Q4H PRN PRN Reason: Anxiety Metoprolol Tartrate (Lopressor) 5 mg IVPUSH Q4H PRN PRN Reason: Other Ondansetron HCl (Zofran) 4 mg IVPUSH Q8H PRN PRN Reason: Nausea/Vomiting Sodium Chloride (Saline Flush) 10 ml FLUSH ASDIRECTED PRN PRN Reason: Keep Vein Open Last Admin: 09/08/16 12:16 Dose: 10 ml Temazepam (Restoril) 15 mg PO BEDTIME PRN PRN Reason: Sleep Trazodone HCl (Trazodone) 50 mg PO BEDTIME PRN PRN Reason: Insomnia Last Admin: 09/09/16 22:39 Dose: 50 mg Discontinued Medications Albuterol/Ipratropium (Duoneb 3.0-0.5 Mg/3 Ml) 3 ml NEB QIDRT [facility] Last Admin: 09/10/16 10:19 Dose: 3 ml Albuterol/Ipratropium (Duoneb 3.0-0.5 Mg/3 Ml) 3 ml NEB Q4HRRT PRN PRN Reason: Shortness of Breath Clonidine HCl (Catapres) 0.1 mg PO ONETIME ONE Stop: 09/08/16 11:58 Last Admin: 09/08/16 12:14 Dose: 0.1 mg Enoxaparin Sodium (Lovenox) 40 mg SUBCUT DAILY ONE Stop: 09/08/16 18:26 Last Admin: 09/08/16 20:04 Dose: 40 mg Sodium Chloride (Normal Saline) 1,000 mls @ 1,000 mls/hr IV .BOLUS STA Stop: 09/08/16 12:53 Last Admin: 09/08/16 12:14 Dose: 1,000 mls/hr Sodium Chloride (Normal Saline) 100 mls @ 150 mls/hr IV ASDIRECTED [facility] Last Admin: 09/08/16 15:48 Dose: 60 mls/hr Levofloxacin/Dextrose 750 mg/ (Premix) 150 mls @ 100 mls/hr IV ONETIME ONE Stop: 09/08/16 17:55 Last Admin: 09/08/16 16:35 Dose: 100 mls/hr Magnesium Sulfate 2 gm/ Premix 50 mls @ 25 mls/hr IV ONETIME ONE Stop: 09/08/16 20:22 Last Admin: 09/08/16 20:03 Dose: 25 mls/hr Piperacillin Sod/Tazobactam (Sod 4.5 gm/ Sodium Chloride) 100 mls @ 200 mls/hr IV ONETIME ONE Stop: 09/08/16 19:29 Last Admin: 09/08/16 19:25 Dose: 200 mls/hr Iopamidol (Isovue-370 (76%)) 100 ml IVPUSH ONETIME ONE Stop: 09/08/16 15:28 Last Admin: 09/08/16 15:48 Dose: 100 ml Sodium Chloride (Saline Flush) 10 ml FLUSH ONETIME ONE Stop: 09/08/16 15:28 Last Admin: 09/08/16 15:48 Dose: 10 ml - Exam Quality Assessment: DVT Prophylaxis General: Alert, Oriented, Cooperative HEENT: Pupils Equal, Pupils Reactive, EOMI Neck: Supple, Trachea Midline Lungs: Normal Respiratory Effort Cardiovascular: Regular Rate, Regular Rhythm GI/Abdominal Exam: Normal Bowel Sounds, Soft, Non-Tender, No Organomegaly, No Distention (Male) Exam: Deferred Back Exam: Normal Inspection Extremities: Normal Inspection, No Pedal Edema Skin: Warm Neurological: No New Focal Deficit Psy/Mental Status: Alert, Depressed - Problem List & Annotations (1) Heroin addiction SNOMED Code(s): 783664212, 43250811, 774262217 Code(s): F11.20 - OPIOID DEPENDENCE, UNCOMPLICATED Status: Acute Current Visit: Yes (2) Pneumonia SNOMED Code(s): 220250969 Code(s): J18.9 - PNEUMONIA, UNSPECIFIED ORGANISM Status: Acute Current Visit: Yes Qualifiers: Pneumonia type: due to unspecified organism Laterality: bilateral Lung location: lower lobe of lung Qualified Code(s): J18.9 - Pneumonia, unspecified organism (3) Alcohol withdrawal syndrome SNOMED Code(s): 665498840 Code(s): F10.239 - ALCOHOL DEPENDENCE WITH WITHDRAWAL, UNSPECIFIED Status: Acute Current Visit: No Qualifiers: Complication of substance-induced condition: uncomplicated Qualified Code(s ): F10.230 - Alcohol dependence with withdrawal, uncomplicated - Problem List Review Problem List Initiated/Reviewed/Updated: Yes - My Orders Last 24 Hours: My Active Orders 09/09/16 22:00 Levofloxacin/Dextrose 5%-Water [Levaquin in D5W 750 MG/150 ML] 750 mg Premix Bag 1 bag IV Q24H 09/09/16 22:33 Temazepam [Restoril] 15 mg PO BEDTIME PRN 09/09/16 22:34 traZODone 50 mg PO BEDTIME PRN 09/10/16 10:10 OPIATES 9 DRUG CONF LC-MS/MS Routine 09/10/16 10:12 MISC TEST Routine 09/10/16 14:50 RT Aerosol Therapy [RC] ASDIRECTED 09/10/16 14:54 Albuterol/Ipratropium [DuoNeb 3.0-0.5 MG/3 ML] 3 ml NEB QID PRN 09/10/16 16:52 LORazepam [Ativan] 2 mg IVPUSH Q4H PRN 09/10/16 Lunch Regular Diet [DIET] 09/11/16 05:00 BASIC METABOLIC PANEL,BMP [CHEM] DAILY CBC WITH AUTO DIFF [HEME] DAILY CRP [C-REACTIVE PROTEIN] [CHEM] DAILY MAGNESIUM [CHEM] DAILY 09/12/16 05:00 BASIC METABOLIC PANEL,BMP [CHEM] DAILY CBC WITH AUTO DIFF [HEME] DAILY CRP [C-REACTIVE PROTEIN] [CHEM] DAILY MAGNESIUM [CHEM] DAILY - Plan Plan:: Impression: Acute heroin use ETOH withdrawal Bilateral PNA/Hypoxia Hepatitis status, pending; HIV requested Electrolytes imbalance Elevated transaminase Chronic: Anxiety Depression Tobacco Plan: CIWA IVF Supportive care, withdrawal ATBs-pna Nebs ICU admission SW/PT/OT Court order for hold. DVT/GI prophylaxis DC 24-48 hours
[2016-09-10] MEDS ORDERED: Magnesium Sulfate/Water 4 GM in Premix Bag 1 BAG IV ONE (19:21)
[2016-09-10] MEDS: Sodium Chloride 0.9% 10 ML Syringe FLUSH PRN (20:00)
[2016-09-10] MEDS: Magnesium Sulfate/Water 2 GM in Premix Bag 1 BAG IV SCH ×2 (20:07→21:07)
[2016-09-10 21:16] VITALS: BP 133/98
[2016-09-10] MEDS: Levofloxacin/Dextrose 5%-Water 750 MG in Premix Bag 1 BAG IV SCH (22:28)
--- NOTE | 2016-09-11 19:30 | PCM.DCSUM1 ---
Discharge Summary - Hospital Course Free Text/Narrative:: 40 year old male with court order for commitment, left against medical advice provide by ICU nurse at the time of the occurrence. Was picked up by the Police , and is now in custody. Treatment provided: Heroin withdrawal; Alcohol withdrawal; Pneumonia prior to leaving AMA. He had been seen by Dr Whitley, psychiatrist and Armando Pittman, substance abuse counselor. Per protocol he was in the ICU prior to eloping. - Discharge Data Discharge Date: 09/10/16 Discharge Disposition: Eloped 07 Condition: Stable - Discharge Diagnosis/Problem(s) (1) Heroin addiction SNOMED Code(s): 197047546, 28159078, 162469574 ICD Code: F11.20 - OPIOID DEPENDENCE, UNCOMPLICATED Status: Acute (2) Pneumonia SNOMED Code(s): 144652950 ICD Code: J18.9 - PNEUMONIA, UNSPECIFIED ORGANISM Status: Acute Qualifiers: Pneumonia type: due to unspecified organism Laterality: bilateral Lung location: lower lobe of lung Qualified Code(s): J18.9 - Pneumonia, unspecified organism (3) Alcohol withdrawal syndrome SNOMED Code(s): 337837106 ICD Code: F10.239 - ALCOHOL DEPENDENCE WITH WITHDRAWAL, UNSPECIFIED Status : Acute Qualifiers: Complication of substance-induced condition: uncomplicated Qualified Code(s ): F10.230 - Alcohol dependence with withdrawal, uncomplicated - Patient Summary/Data Consults: Consultations 09/08/16 18:12 Consult to Physician [CONS] Routine 09/08/16 18:13 Consult for Substance Abuse [CONS] Routine 09/08/16 18:28 Consult to Commis Chef [CONS] Routine - Discharge Plan Home Medications: Home Meds . [No Known Home Meds] 09/07/16 [History] Patient Handouts: Smoking Cessation, Tips for Success, Opiz-dt-Gbyc, Alcohol Use Disorder, Benzodiazepine Withdrawal, Finding Treatment for Addiction, Opioid Withdrawal, Community-Acquired Pneumonia, Adult, Egqc-bz-[id number], Alcohol Withdrawal, Dado-iv-Cpyk Forms: ED Department Discharge Referrals: PCP,None [Primary Care Provider] - - Patient Data Vitals - Most Recent: Last Vital Signs Temp 37.1 C 09/10/16 20:00 Pulse 95 09/09/16 16:00 Resp 20 09/10/16 20:00 BP 133/98 H 09/10/16 21:15 Pulse Ox 98 09/10/16 20:00 Weight - Most Recent: 77.337 kg Med Orders - Current: Current Medications Discontinued Medications Albuterol/Ipratropium (Duoneb 3.0-0.5 Mg/3 Ml) 3 ml NEB QIDRT ON LICENSE OF [facility] Last Admin: 09/10/16 10:19 Dose: 3 ml Albuterol/Ipratropium (Duoneb 3.0-0.5 Mg/3 Ml) 3 ml NEB Q4HRRT PRN PRN Reason: Shortness of Breath Albuterol/Ipratropium (Duoneb 3.0-0.5 Mg/3 Ml) 3 ml NEB QID PRN PRN Reason: Shortness of Breath Chlordiazepoxide HCl (Librium) 25 mg PO TID PRN PRN Reason: Anxiety Last Admin: 09/10/16 05:52 Dose: 25 mg Clonidine HCl (Catapres) 0.1 mg PO ONETIME ONE Stop: 09/08/16 11:58 Last Admin: 09/08/16 12:14 Dose: 0.1 mg Clonidine HCl (Catapres) 0.1 mg PO Q8H ON [facility] OF [facility] Last Admin: 09/10/16 21:15 Dose: 0.1 mg Enoxaparin Sodium (Lovenox) 40 mg SUBCUT DAILY ONE Stop: 09/08/16 18:26 Last Admin: 09/08/16 20:04 Dose: 40 mg Sodium Chloride (Normal Saline) 1,000 mls @ 1,000 mls/hr IV .BOLUS STA Stop: 09/08/16 12:53 Last Admin: 09/08/16 12:14 Dose: 1,000 mls/hr Sodium Chloride (Normal Saline) 100 mls @ 150 mls/hr IV ASDIRECTED ON LICENSE OF [facility] Last Admin: 09/08/16 15:48 Dose: 60 mls/hr Levofloxacin/Dextrose 750 mg/ (Premix) 150 mls @ 100 mls/hr IV ONETIME ONE Stop: 09/08/16 17:55 Last Admin: 09/08/16 16:35 Dose: 100 mls/hr Levofloxacin/Dextrose 750 mg/ (Premix) 150 mls @ 100 mls/hr IV Q24H ON LICENSE OF [facility] Last Admin: 09/10/16 22:28 Dose: Not Given Magnesium Sulfate 2 gm/ Premix 50 mls @ 25 mls/hr IV ONETIME ONE Stop: 09/08/16 20:22 Last Admin: 09/08/16 20:03 Dose: 25 mls/hr Piperacillin Sod/Tazobactam (Sod 4.5 gm/ Sodium Chloride) 100 mls @ 25 mls/hr IV Q8H ON LICENSE OF [facility] Last Admin: 09/10/16 20:02 Dose: 25 mls/hr Potassium Chloride/Sodium Chloride (1/2 Ns With 20 Meq Kcl) 1,000 mls @ 150 mls /hr IV ASDIRECTED ON LICENSE OF [facility] Last Admin: 09/10/16 05:45 Dose: 150 mls/hr Piperacillin Sod/Tazobactam (Sod 4.5 gm/ Sodium Chloride) 100 mls @ 200 mls/hr IV ONETIME ONE Stop: 09/08/16 19:29 Last Admin: 09/08/16 19:25 Dose: 200 mls/hr Magnesium Sulfate 2 gm/ Premix 50 mls @ 50 mls/hr IV Q1H ON LICENSE OF [facility] Stop: 09/10/16 21:29 Last Admin: 09/10/16 21:07 Dose: 50 mls/hr Iopamidol (Isovue-370 (76%)) 100 ml IVPUSH ONETIME ONE Stop: 09/08/16 15:28 Last Admin: 09/08/16 15:48 Dose: 100 ml Lorazepam (Ativan) 2 mg IVPUSH Q4H PRN PRN Reason: Anxiety Last Admin: 09/10/16 17:59 Dose: 2 mg Metoprolol Tartrate (Lopressor) 5 mg IVPUSH Q4H PRN PRN Reason: Other Ondansetron HCl (Zofran) 4 mg IVPUSH Q8H PRN PRN Reason: Nausea/Vomiting Sodium Chloride (Saline Flush) 10 ml FLUSH ASDIRECTED PRN PRN Reason: Keep Vein Open Last Admin: 09/10/16 20:00 Dose: 10 ml Sodium Chloride (Saline Flush) 10 ml FLUSH ONETIME ONE Stop: 09/08/16 15:28 Last Admin: 09/08/16 15:48 Dose: 10 ml Temazepam (Restoril) 15 mg PO BEDTIME PRN PRN Reason: Sleep Trazodone HCl (Trazodone) 50 mg PO BEDTIME PRN PRN Reason: Insomnia Last Admin: 09/09/16 22:39 Dose: 50 mg *Q Meaningful Use (DIS) - VTE *Q VTE Criteria *Q: - Stroke *Q Stroke Criteria *Q: - AMI *Q AMI Criteria *Q:
== END 2016-09-10 21:42 | disposition left against medical advice (07) | DRG 194 ==
LOC: JD.ED 11:26 → JD.ICU 17:26
PROVIDERS: ADMIT Internal Medicine Cardiovascular Disease; ATTEND Internal Medicine Cardiovascular Disease
DX: J18.9 Pneumonia, unspecified organism (principal); L03.113 Cellulitis of right upper limb; F11.20 Opioid dependence, uncomplicated; F10.239 Alcohol dependence with withdrawal, unspecified; R09.02 Hypoxemia; F32.9 Major depressive disorder, single episode, unspecified; F41.9 Anxiety disorder, unspecified; F17.200 Nicotine dependence, unspecified, uncomplicated; Z53.21 Procedure and treatment not carried out due to patient leaving prior to being seen by health care provider
CPT/HCPCS: 36415; 36600; 71010; 71010-26; 71020; 71020-26; 71275; 71275-26; 80048; 80053; 80074; 80306; 82803; 83735; 83880; 84484; 85025; 86140; 86738; 87449; 87486; 87581; 87633; 87798; 87899; 94640-76; 96360; 96365; 99223; 99232; 99284; 99285-25; A9270-GY; G0480; J1650; J1956; J2060; J2543; J3475; J3480; J7030; J7040; J7050; P9612; Q9967